=== PATIENT | female | born 1945 | race Hispanic/Latino ===

== ENCOUNTER 2017-04-05 20:49 | Inpatient (IN) | payer MEDICARE, BC ==
--- NOTE | 2017-04-05 22:32 | ED PDOC ---
Arrival/HPI <Jayesh Kelley - Last Filed: 04/06/17 01:36> <Willy Ohara - Last Filed: 04/06/17 06:40> - General Chief Complaint: Abdominal Pain - History of Present Illness Narrative History of Present Illness (Text): 04/05/17 22:26 Pt is a 71 yo F with PMH of hypertension presents to Emergency department with a several week history of generalized abdominal pain. Pt states that abdominal pain starts in epigastric region and radiates inferiorly. Pt states that pain is dull and has been worsening over this time period. Pt states that PO intake has decreased over the last few days, but tries to maintain fluids. Pt scheduled appt with Dr. Leal, but abdominal pain worsened enough to point that friend insisted she go to Emergency department. Pt is noncompliant with her hypertension medication and only takes it when its high. Pt denied chest pain, sob, nausea, vomiting, diarrhea, fever, chills, headache, or dizziness. (Jayesh Kelley) Past Medical History - Infectious Disease Hx of Infectious Diseases: None - Tetanus Immunization Tetanus Immunization: Unknown - Cardiac Hx Hypertension: Yes - Psychiatric Hx Depression: No Hx Emotional Abuse: No Hx Physical Abuse: No Hx Substance Use: No - Surgical History Hx Joint Replacement: Yes (bilateral hip) - Anesthesia Hx Anesthesia: No - Suicidal Assessment Feels Threatened In Home Enviroment: No <Jayesh Kelley - Last Filed: 04/06/17 01:36> Family/Social History Family/Social History: No Known Family HX Smoking Status: Never Smoked Hx Alcohol Use: No Hx Substance Use: No Hx Substance Use Treatment: No <Jayesh Kelley - Last Filed: 04/06/17 01:36> Allergies/Home Meds <Jayesh Kelley - Last Filed: 04/06/17 01:36> <Willy Ohara - Last Filed: 04/06/17 06:40> Allergies/Adverse Reactions: Allergies No Known Allergies Allergy (Verified 10/23/12 13:45) Home Medications: Home Meds Medication Instructions Recorded Confirmed No Known Home Med 10/23/12 10/23/12 Review of Systems - Review of Systems Constitutional: Normal Eyes: Normal ENT: Normal Respiratory: Normal Cardiovascular: Normal Gastrointestinal: Abdominal Pain (diffuse). absent: Stool Changes, Hematochezia , Hematemesis Genitourinary Female: Normal Musculoskeletal: Normal Skin: Normal Neurological: Normal Endocrine: Normal Hemo/Lymphatic: Normal Psychiatric: Normal <AllieJayesh - Last Filed: 04/06/17 01:36> Physical Exam Vital Signs Reviewed: Yes Temperature: Afebrile Blood Pressure: Hypertensive Pulse: Tachycardic Respiratory Rate: Normal Appearance: Positive for: Well-Appearing Pain Distress: Mild Mental Status: Positive for: Alert and Oriented X 3 - Systems Exam Head: Present: Atraumatic, Normocephalic Extroacular Muscles: Present: EOMI Mouth: Present: Moist Mucous Membranes Neck: Present: Normal Range of Motion Respiratory/Chest: Present: Clear to Auscultation. No: Accessory Muscle Use, Wheezes, Rales, Rhonchi Cardiovascular: Present: Normal S1, S2, Tachycardic. No: Murmurs, Rub, Gallop Abdomen: Present: Tenderness (diffuse, greatest in RLQ), Distention. No: Peritoneal Signs, Rebound, Guarding, McBurney's Point Tender, Rovsing's Sign Present Back: Present: Normal Inspection Upper Extremity: Present: Normal Inspection Lower Extremity: Present: Normal Inspection Neurological: Present: GCS=15 Skin: Present: Warm, Dry, Normal Color Psychiatric: Present: Alert, Oriented x 3 <AllieJayesh - Last Filed: 04/06/17 01:36> Vital Signs Temp Pulse Resp BP Pulse Ox 04/06/17 04:12 98.0 F 82 17 156/86 H 98 04/06/17 01:34 96 H 17 155/91 H 98 04/05/17 22:11 98.2 F 95 H 17 196/95 H 99 Medical Decision Making <Jayesh Kelley - Last Filed: 04/06/17 01:36> - Lab Interpretations I have reviewed the lab results: Yes - RAD Interpretation [employer] Supervisor: Radiologist <Willy Ohara - Last Filed: 04/06/17 06:40> ED Course and Treatment: 04/05/17 22:36 Assessment: Pt is a 71 yo F with PMH of hypertension presents to emergency department with abdominal pain. Plan: - CBC - CMP - Lipase - Cardiac enzymes - EKG - CT abd/pelvis with IV contrast 04/05/17 23:08 BP rechecked, 148/90. EKG showed NSR. 04/06/17 01:25 CT abdomen/pelvis with IV contrast 1. Peripancreatic fluid is in infiltration. There is heterogeneous hypodensity within the pancreatic tail measuring 1.9 x 1.0 cm. the possibility of pancreatic neoplasm versus a pseudocyst cannot be excluded. 2. Large amount of intraperitoneal abdominal and pelvic fluid. The extensive ascites could be due to liver disease. Correlation with clinical data is recommended. 3. Contracted gallbladder with gallbladder wall thickening pericholecystic fluid and possible gallstones. Correlation with internal medicine evaluation and further workup or followup as recommended by patient's clinical data. 04/06/17 01:[address] findings and labs with patient. Explained to patient the need to be admitted and undergo further evaluation. (Jayesh Kelley) Impression: Pt seen and evaluated with medical social worker. Pt, whose past medical history includes hypertension, presented for generalzied abdominal pain. Aware and agree with HPI, clinical findings, plan, and management. Plan: -- CT Abdomen and Pelvis -- EKG -- Labs, cardiac enzymes, lipase -- Reassess and disposition 04/06/17 01:[address] Cline, who is aware and agrees with plan. Accepts pt in to his service. Pt will go to [facility] observation for abdominal pain and ascites. vice president quality notified. (Willy Ohara) - Lab Interpretations Lab Results: 04/05/17 23:10 04/05/17 23:10 Lab Results 04/05/17 23:10: Carcinoembryonic Ag 2.2 04/05/17 23:10: Sodium 139, Potassium 4.0, Chloride 103, Carbon Dioxide 27, Anion Gap 14, BUN 19, Creatinine 0.8, Est GFR ( Amer) > 60, Est GFR (Non- Af Amer) > 60, Random Glucose 129 H, Calcium 9.1, Magnesium 2.0, Total Bilirubin 0.5, AST 34, ALT 30, Alkaline Phosphatase 83, Lactate Dehydrogenase 352, Total Creatine Kinase < 20 L, Troponin I < 0.01, Total Protein 6.2, Albumin 3.4, Globulin 2.8, Albumin/Globulin Ratio 1.2, Lipase 118 04/05/17 23:10: WBC 9.3, RBC 4.01, Hgb 11.5 L, Hct 35.6 L, MCV 88.8, MCH 28.7, MCHC 32.3, RDW 12.7, Plt Count 178, MPV 10.4, Gran % 79.5 H, Lymph % (Auto) 11.3 L, [place] % (Auto) 8.6 H, Eos % (Auto) 0.5 L, Baso % (Auto) 0.1, Gran # 7.41 H, Lymph # (Auto) 1.1 L, [place] # (Auto) 0.8 H, Eos # (Auto) 0.1, Baso # (Auto) 0.01 - RAD Interpretation Radiology Orders: 04/05/17 22:22 ABDOMEN & PELVIS [ABD & PELVIS IV CONTRAST ONLY] [CT] Stat - Medication Orders Current Medication Orders: Acetaminophen (Tylenol 325mg Tab) 650 mg PO Q4H PRN PRN Reason: Pain, Mild (1-3) Heparin Sodium (Porcine) (Heparin) 5,000 units SC Q12 SADE PRN Reason: Protocol Hydralazine HCl (Apresoline) 10 mg IVP Q6 PRN PRN Reason: SBP >160 Sodium Chloride (Sodium Chloride 0.9%) 1,000 mls @ 100 mls/hr IV .Q10H [facility] Last Admin: 04/06/17 06:29 Dose: 100 mls/hr eMAR Start Stop Document 04/06/17 06:29 SG (Rec: 04/06/17 06:29 SG [id number]) Intravenous Solution Start Date 04/06/17 Start Time 06:29 Ondansetron HCl (Zofran Inj) 4 mg IVP Q4H PRN PRN Reason: Nausea/Vomiting Pantoprazole Sodium (Protonix Ec Tab) 40 mg PO 0600 [facility] Last Admin: 04/06/17 06:28 Dose: 40 mg - PA / SPLUNK CONSULTANT / Resident Statement / has reviewed & agrees with the documentation as recorded. / has examined the patient and agrees with the treatment plan. <Willy Ohara - Last Filed: 04/06/17 06:40> Disposition/Present on Arrival - Present on Arrival Any Indicators Present on Arrival: No History of DVT/PE: No History of Uncontrolled Diabetes: No Urinary Catheter: No History of Decub. Ulcer: No History Surgical Site Infection Following: None - Disposition Have Diagnosis and Disposition been Completed?: Yes Disposition Time: 01:39 Patient Plan: Admission <Jayesh Kelley - Last Filed: 04/06/17 01:36> <Willy Ohara - Last Filed: 04/06/17 06:40> - Disposition Diagnosis: Abdominal pain Disposition: HOSPITALIZED Patient Problems: Current Active Problems Problem Status Onset Abdominal pain Acute Condition: FAIR
[2017-04-05 23:17] LABS: BASO # 0.01 K/mm3 (0.0-2.0); BASO % 0.1 % (0.0-3.0); EOS # 0.1 (0.0-0.7); EOS % 0.5 % (1.5-5.0); GRAN # 7.41 (1.4-6.5); GRAN % 79.5 % (50.0-68.0); HEMOGLOBIN 11.5 g/dL (12.0-16.0); LYMPH # 1.1 (1.2-3.4); LYMPH % 11.3 % (22.0-35.0); MEAN CELL VOLUME 88.8 fl (80.0-105.0); MEAN CORPUSCULAR HEMOGLOBIN 28.7 pg (25.0-35.0); MEAN CORPUSCULAR HGB CONC 32.3 g/dl (31.0-37.0); MEAN PLATELET VOLUME 10.4 fl (7.0-11.0); MONO # 0.8 (0.1-0.6); MONO % 8.6 % (1.0-6.0); RBC 4.01 10^6/uL (3.5-6.1); RED CELL DISTRIBUTION WIDTH 12.7 % (11.5-14.5); WHITE BLOOD COUNT 9.3 10^3/ul (4.5-11.0)
[2017-04-05 23:28] LABS: ALB/GLOB RATIO 1.2 (1.1-1.8); ALBUMIN 3.4 g/dL (3.0-4.8); ALT/SGPT 30 U/L (7-56); AST/SGOT 34 U/L (14-36); BLOOD UREA NITROGEN 19 mg/dL (7-21); CALCIUM 9.1 mg/dL (8.4-10.5); GFR AFRICAN-AMERICAN > 60; GFR NON-AFRICAN AMERICAN > 60; LIPASE 118 U/L (23-300)
[2017-04-05 23:39] LABS: TROPONIN I < 0.01 ng/mL
[2017-04-05] MEDS ORDERED: Iohexol 350 MG/100 ML VIAL ONE (23:40)
--- NOTE | 2017-04-06 01:10 | CT ---
EXAM: CT Abdomen and Pelvis With Intravenous Contrast CLINICAL HISTORY: 71 years old, female; Pain; Abdominal pain; Generalized TECHNIQUE: Axial computed tomography images of the abdomen and pelvis with intravenous contrast. All CT scans at this facility use one or more dose reduction techniques, viz.: automated exposure control; ma/kV adjustment per patient size (including targeted exams where dose is matched to indication; i.e. head); or iterative reconstruction technique. 598 images are submitted. Coronal and sagittal reformatted images were created and reviewed. CONTRAST: 96 mL of OMNI 350 administered intravenously. COMPARISON: No relevant prior studies available. FINDINGS: Lower thorax: Small hiatal hernia. There is bibasilar atelectasis. ABDOMEN: Liver: There is a 3 mm focal liver hypodensity that cannot be further characterized on the current examination. Possible nodular liver. Correlation with clinical data is recommended to evaluate for hepatocellular disease. Gallbladder and bile ducts: Contracted gallbladder with gallbladder wall thickening pericholecystic fluid and possible gallstones. Pancreas: Peripancreatic fluid is in infiltration. There is heterogeneous hypodensity within the pancreatic tail measuring 1.9 x 1.0 cm. the possibility of pancreatic neoplasm cannot be excluded. No ductal dilation. Spleen: The spleen measures 12 cm. Adrenals: Unremarkable. No mass. Kidneys and ureters: There is right-sided extrarenal pelvis with moderate distention. The right ureter is difficult to follow to the level of UVJ. No hydronephrosis. Stomach and bowel: Nonspecific gastric thickening with perigastric and periduodenal fluid. Diverticulosis. Nonspecific colonic thickening likely due to under distention. There are nonspecific fluid filled small bowel loops. These findings can represent ileus versus enteritis versus slow transit versus peristalsis. Appendix: The appendix is difficult to visualize. The right colon is surrounded by fluid. PELVIS: Bladder: Limited evaluation of bladder due to artifact. Reproductive: Heterogeneous uterus with calcifications. Suboptimally evaluated due to artifact. Uterine fibroids are not excluded. ABDOMEN and PELVIS: Intraperitoneal space: Large amount of intraperitoneal abdominal and pelvic fluid. No free air. Bones/joints: Bilateral hip prosthesis. The left femoral component is stabilized by a circumferential wire. The femoral components are incompletely seen. There is extensive artifact from hip prosthesis compromising the pelvic organs details. Multilevel vacuum degenerative disc disease. There is anterolisthesis of L4 over L5. No acute fracture. No dislocation. Soft tissues: Unremarkable. Vasculature: The aorta demonstrates calcified plaque and is mildly ectatic but normal in caliber. Lymph nodes: Subcentimeter mesenteric lymph nodes. IMPRESSION: 1. Peripancreatic fluid is in infiltration. There is heterogeneous hypodensity within the pancreatic tail measuring 1.9 x 1.0 cm. the possibility of pancreatic neoplasm versus a pseudocyst cannot be excluded. 2. Large amount of intraperitoneal abdominal and pelvic fluid. The extensive ascites could be due to liver disease. Correlation with clinical data is recommended. 3. Contracted gallbladder with gallbladder wall thickening pericholecystic fluid and possible gallstones. Correlation with internal medicine evaluation and further workup or followup as recommended by patient's clinical data.
--- NOTE | 2017-04-06 02:19 | CP.PCM.HP ---
History of Present Illness - History of Present Illness History of Present Illness: 71 year old female with past medical history of hypertension presents to the hospital for 4 month history of abdominal pain. Patient states pain started gradually and has not been associated with any particular inciting factors. Pain is described as mild and intermittent, with no radiation. Patient also reports that she has had early satiety and subjectively lost weight over this time period. Patient only came to the hospital at the advice of her friend. Patient had an appointment with Dr. Leal next week for her abdominal pain. She has not seen her PMD in over 5 years. Denies chest pain, shortness of breath , nausea, vomiting, diarrhea, fever, chills, constipation. Past medical history: hypertension Surgical history: B/l hip replacement Family history: Noncontributory Social history: Denies alcohol, tobacco, or illicit drug use Medications: Unknown hypertension med [email or web address] Allergies: NKDA Present on Admission - Present on Admission Any Indicators Present on Admission: No Review of Systems - Review of Systems Review of Systems: 12 point ROS as per HPI, otherwise negative Past Patient History - Infectious Disease Hx of Infectious Diseases: None - Tetanus Immunizations Tetanus Immunization: Unknown - Past Social History Smoking Status: Never Smoked - CARDIAC Hx Hypertension: Yes - PSYCHIATRIC Hx Depression: No Hx Emotional Abuse: No Hx Physical Abuse: No Hx Substance Use: No - SURGICAL HISTORY Hx Joint Replacement: Yes (bilateral hip) - ANESTHESIA Hx Anesthesia: No Meds Allergies/Adverse Reactions: Allergies Allergy/AdvReac Type Severity Reaction Status Date / Time No Known Allergies Allergy Verified 10/23/12 13:45 Physical Exam - Constitutional Appears: Non-toxic, No Acute Distress - Head Exam Head Exam: ATRAUMATIC, NORMAL INSPECTION, NORMOCEPHALIC - Eye Exam Eye Exam: EOMI, Normal appearance - ENT Exam ENT Exam: Mucous Membranes Moist, Normal Exam - Neck Exam Neck exam: Positive for: Normal Inspection. Negative for: Lymphadenopathy - Respiratory Exam Respiratory Exam: Clear to Auscultation Bilateral, NORMAL BREATHING PATTERN. absent: Rales, Rhonchi, Wheezes - Cardiovascular Exam Cardiovascular Exam: RRR, +S1, +S2 - GI/Abdominal Exam GI & Abdominal Exam: Normal Bowel Sounds, Soft, Tenderness (Mild epigastric). absent: Distended, Guarding, Rebound - Extremities Exam Extremities exam: Positive for: normal inspection. Negative for: calf tenderness, pedal edema - Neurological Exam Neurological exam: Alert, CN II-XII Intact, Oriented x3 - Psychiatric Exam Psychiatric exam: Normal Affect, Normal Mood - Skin Skin Exam: Intact, Normal Color, Warm Results - Vital Signs Recent Vital Signs: Last Vital Signs Temp 98.2 F 04/05/17 22:11 Pulse 96 H 04/06/17 01:34 Resp 17 04/06/17 01:34 BP 155/91 H 04/06/17 01:34 Pulse Ox 98 04/06/17 01:34 - Labs Result Diagrams: 04/05/17 23:10 04/05/17 23:10 Labs: Laboratory Results - last 24 hr 04/05/17 04/05/17 23:10 23:10 WBC 9.3 RBC 4.01 Hgb 11.5 L Hct 35.6 L MCV 88.8 MCH 28.7 MCHC 32.3 RDW 12.7 Plt Count 178 MPV 10.4 Gran % 79.5 H Lymph % (Auto) 11.3 L [place] % (Auto) 8.6 H Eos % (Auto) 0.5 L Baso % (Auto) 0.1 Gran # 7.41 H Lymph # (Auto) 1.1 L [place] # (Auto) 0.8 H Eos # (Auto) 0.1 Baso # (Auto) 0.01 Sodium 139 Potassium 4.0 Chloride 103 Carbon Dioxide 27 Anion Gap 14 BUN 19 Creatinine 0.8 Est GFR ( Amer) > 60 Est GFR (Non-Af Amer) > 60 Random Glucose 129 H Calcium 9.1 Magnesium 2.0 Total Bilirubin 0.5 AST 34 ALT 30 Alkaline Phosphatase 83 Lactate Dehydrogenase 352 Total Creatine Kinase < 20 L Troponin I < 0.01 Total Protein 6.2 Albumin 3.4 Globulin 2.8 Albumin/Globulin Ratio 1.2 Lipase 118 Assessment & Plan - Assessment and Plan (Free Text) Plan: 71 year old female with past medical history of hypertension presents to the hospital for abdominal pain. Patient had abdomen/pelvis CT which demonstrated pancreatic neoplasm vs pseudocyst with extensive abdominal ascites. Patient will be evaluated by GI. We will obtain serum cancer markers. Will continue to monitor closely. 1. Abdominal pain HIDA ordered Abdomen US ordered Liquid diet Tylenol for abdominal pain CA 125, CA 9, CEA ordered GI Consulted, Dr. Leal 2. Hypertension Hydralazine prn ordered Will contact pharmacy to confirm meds 3. Prophylaxis Protonix Heparin Fred, PGY-2
[2017-04-06] MEDS: Pantoprazole 40 mg EC Tab PO SCH (06:28)
[2017-04-06] MEDS: Sodium Chloride 0.9% 1,000 ML IV SCH ×2 (06:29→13:53)
[2017-04-06 07:48] LABS: HEMOGLOBIN 11.4 g/dL (12.0-16.0); MEAN CELL VOLUME 88.5 fl (80.0-105.0); MEAN CORPUSCULAR HEMOGLOBIN 28.5 pg (25.0-35.0); MEAN CORPUSCULAR HGB CONC 32.2 g/dl (31.0-37.0); MEAN PLATELET VOLUME 10.7 fl (7.0-11.0); RED CELL DISTRIBUTION WIDTH 12.7 % (11.5-14.5)
[2017-04-06 08:27] LABS: IRON 30 ug/dL (45-180)
[2017-04-06 08:37] LABS: % IRON SATURATION 11 % (20-55); TOTAL IRON BINDING CAPACITY 266 ug/dL (265-497)
--- NOTE | 2017-04-06 08:38 | US ---
EXAM: US Abdomen Complete CLINICAL HISTORY: 71 years old, female; Pain; Abdominal pain; Generalized TECHNIQUE: Real-time ultrasound of the abdomen (complete) with image documentation. COMPARISON: CT - ABD PELVIS IV CONTRAST ONLY 2017-04-06 00:04 FINDINGS: Artifacts: Limited due to bowel gas shadowing. Limited due to shadowing from the ribs. Liver: The liver measures 15.4 cm. Limited evaluation due to shadowing. Heterogeneous appearance to the liver suspicious for hepatocellular disease. There is hepatic pedal flow in the portal vein. Gallbladder: Contracted gallbladder with 6 mm gallbladder wall thickening which is suboptimally evaluated due to its contracted state. No gallstones. Common bile duct: Normal common bile duct measuring 4 mm. No stones. No dilation. Pancreas: The pancreas is not well-seen. The pancreatic duct measures 3 mm. Kidneys: The right kidney measures 10.9 x 3.9 x 5.3 cm. The left kidney measures 11.0 x 5.2 x 5.4 cm. No stones. No hydronephrosis. Spleen: The spleen measures 10.7 x 5.1 x 5.1 cm. Aorta: Limited evaluation of the aorta due to shadowing. Inferior vena cava: IVC is seen. Free fluid: Large amount of ascites. IMPRESSION: 1. Contracted gallbladder with 6 mm gallbladder wall thickening which is suboptimally evaluated due to its contracted state. 2. Large amount of ascites. 3. Heterogeneous liver suspicious for hepatocellular disease.
[2017-04-06 08:40] LABS: ALB/GLOB RATIO 1.2 (1.1-1.8); ALBUMIN 3.5 g/dL (3.0-4.8); ALT/SGPT 30 U/L (7-56); AST/SGOT 29 U/L (14-36); BLOOD UREA NITROGEN 15 mg/dL (7-21); CALCIUM 9.1 mg/dL (8.4-10.5); GFR AFRICAN-AMERICAN > 60; GFR NON-AFRICAN AMERICAN > 60
[2017-04-06 08:49] LABS: URIC ACID 4.1 mg/dL (2.5-6.2)
[2017-04-06] MEDS: POLYETHYLENE GLYCOL 3350 17 GM/Dose PACKET PO SCH ×2 (09:15→17:30)
[2017-04-06 09:30] LABS: INR 1.13 (0.93-1.08); PARTIAL THROMBOPLASTIN TIME 30.8 Seconds (25.1-36.5)
--- NOTE | 2017-04-06 09:50 | RAD ---
HISTORY: HTN COMPARISON: No prior. TECHNIQUE: Chest PA and lateral FINDINGS: LUNGS: No active pulmonary disease. PLEURA: No significant pleural effusion identified. No pneumothorax apparent. CARDIOVASCULAR: Normal. OSSEOUS STRUCTURES: Degenerative changes in the left shoulder VISUALIZED UPPER ABDOMEN: Normal. OTHER FINDINGS: None. IMPRESSION: No active disease.
--- NOTE | 2017-04-06 10:14 | CARD ---
APPROVED REPORT EKG Measurement Heart [id number] <Conclusion> Normal sinus rhythm LVH by voltage Wandering baseline
[2017-04-06 12:24] LABS: FOLATE 19.6 ng/mL
[2017-04-06 19:00] LABS: HEPATITIS B SURFACE AG Negative (NEGATIVE)
[2017-04-06 19:06] LABS: HEPATITIS A IGM NEGATIVE (NEGATIVE); HEPATITIS B CORE AB NEGATIVE (NEGATIVE)
[2017-04-06 19:17] LABS: HEPATITIS C ANTIBODY NEGATIVE (NEGATIVE)
--- NOTE | 2017-04-06 21:27 | CARD ---
APPROVED REPORT EKG Measurement Heart [id number] <Conclusion> Normal sinus rhythm Normal ECG
--- NOTE | 2017-04-07 02:11 | HP ---
ADDENDUM The patient was seen and examined in room 366, bed 1. The patient's vital signs, diagnostic data, all reports and resident's history and physical examination from 04/06/2017 reviewed and the patient examined. ADMISSION IMPRESSION AND PLAN: 1. Abdominal pain, etiology undetermined. 2. Hypertension. 3. Transient tachycardia. 4. Normocytic anemia with granulocytosis. 5. Hyperglycemia. 6. Possible iron-deficiency anemia. 7. Elevated CA19-9 and CA-125 level. 8. 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 9. Heterogenous hepatic appearance suspicious for hepatocellular disease. 10. Ascites. 11. Contracted gallbladder with 6 mm gallbladder wall thickening. 12. Hiatal hernia. 13. Bibasilar atelectasis. 14. Nodular liver. 15. Peripancreatic fluid infiltration. 16. Pancreatic tail heterogenous hypodensity, possible pancreatic neoplasm. 17. Moderate right-sided extrarenal pelvic distention. 18. Diverticulosis. 19. Questionable enteritis versus ileus versus slow transit versus peristalsis. 20. Calcified heterogenous uterus. 21. Large intraperitoneal abdominopelvic ascites. 22. Bilateral hip prosthesis. 23. Degenerative joint disease of the lumbar spine. 24. Subcentimeter mesenteric lymphadenopathy. 25. 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 26. History of hypertension. 27. Abdominal pain. 28. Bilateral hip replacement. 29. Iron deficiency. 30. Hyperglycemia. 31. Constipation. 32. Normocytic iron-deficiency anemia. 33. Elevated CA19-9 and elevated CA-125 antigen. 34. Granulocytosis. Plan at this time, the patient is admitted to [facility]. The patient has been ordered serial labs. Hemoglobin A1c, lipid panel, LFTs ordered. Erythropoietin and CBC ordered. GI consultation ordered. The patient is on hydralazine 10 mg IV q. 6 p.r.n., Colace 100 three times a day, heparin 5000 subcu q. 8, Venofer 200 mg IV daily total five, Lopressor 25 twice a day, MiraLax 17 g twice a day, Protonix 40 mg daily, IV fluid 0.9 normal saline at 100 mL an hour, Tylenol 650 q. 6 p.r.n., Zofran 4 mg IV q. 4 p.r.n. The patient has been ordered MRCP of the abdomen with and without contrast. Biliary HIDA scan ordered. EKG ordered. In addition, transvaginal pelvic ultrasound ordered for evaluation of CA-125. At present, the patient's further management will be dependent upon the patient's clinical condition, hemodynamic status and as per the patient's response to therapeutic intervention, as per the patient's diagnostic test results and as per recommendation by all the physician involved in the care of the patient. The patient's condition and need for hospitalization, need for further diagnostic therapeutic intervention discussed and explained to the patient at length and all questions concerned answered. Please refer to the detailed history and physical examination by the associate medical director for 04/06/2017 from this patient. Dictated and electronically signed, not read. Sky Cline MD
[2017-04-07] MEDS: Pantoprazole 40 mg EC Tab PO SCH (05:46)
[2017-04-07] MEDS ORDERED: Pantoprazole 40 mg EC Tab PO SCH (06:00)
[2017-04-07 06:50] LABS: BASO # 0.01 K/mm3 (0.0-2.0); BASO % 0.2 % (0.0-3.0); EOS # 0.1 (0.0-0.7); EOS % 1.1 % (1.5-5.0); GRAN # 4.82 (1.4-6.5); GRAN % 73.9 % (50.0-68.0); HEMOGLOBIN 10.7 g/dL (12.0-16.0); LYMPH # 1.2 (1.2-3.4); LYMPH % 18.1 % (22.0-35.0); MEAN CELL VOLUME 89.2 fl (80.0-105.0); MEAN CORPUSCULAR HEMOGLOBIN 28.2 pg (25.0-35.0); MEAN CORPUSCULAR HGB CONC 31.6 g/dl (31.0-37.0); MEAN PLATELET VOLUME 10.5 fl (7.0-11.0); MONO # 0.4 (0.1-0.6); MONO % 6.7 % (1.0-6.0); RBC 3.8 10^6/uL (3.5-6.1); RED CELL DISTRIBUTION WIDTH 12.9 % (11.5-14.5); WHITE BLOOD COUNT 6.5 10^3/ul (4.5-11.0)
[2017-04-07 07:09] LABS: ALB/GLOB RATIO 1.2 (1.1-1.8); ALT/SGPT 24 U/L (7-56); AST/SGOT 31 U/L (14-36); BILIRUBIN,DIRECT 0.3 mg/dL (0.0-0.4); BLOOD UREA NITROGEN 10 mg/dL (7-21); GFR AFRICAN-AMERICAN > 60; GFR NON-AFRICAN AMERICAN > 60; HDL CHOLESTEROL 38 mg/dL (29-60); MAGNESIUM 1.9 mg/dL (1.7-2.2)
[2017-04-07 07:15] LABS: LDL CHOLESTEROL 88 mg/dL (0-129)
--- NOTE | 2017-04-07 08:30 | CON ---
DATE: REASON FOR CONSULTATION: Abdominal pain, abnormal CAT scan. HISTORY OF PRESENT ILLNESS: This is a 71-year-old patient with a past medical history of hypertension, presented as initially noticed to have abdominal pain, mainly lower abdominal discomfort about 4 months ago. It gradually was increasing in intensity. Initially it was a dull ache. Patient noticed when she was in [place], taking care of her close friend who is requiring liver transplant. Patient shifted to [place] and made appointment to see me in the office next week, found to have worsening of the symptoms, presented to the emergency room. Patient also noticed by the last 2 weeks of change in bowel habits, mostly constipating type. No fever. No vomiting. PAST MEDICAL HISTORY: History of weight loss. Other past medical history includes hypertension. PAST SURGICAL HISTORY: Includes bilateral hip replacement. FAMILY HISTORY: Noncontributory. SOCIAL HISTORY: Denies smoking or alcohol. ALLERGIES: NO KNOWN DRUG ALLERGIES. REVIEW OF SYSTEMS: Positive as above. Other systems reviewed and negative. PHYSICAL EXAMINATION: GENERAL: Patient is lying on the bed. Not in acute distress. VITAL SIGNS: Temperature 98.6, blood pressure 162/87, pulse 75, respirations 20, O2 saturations 98. HEENT: Atraumatic, anicteric. NECK: Supple. HEART: S1, S2 heard. LUNGS: Bilateral air entry present. ABDOMEN: Soft. EXTREMITIES: No cyanosis, no clubbing. NEUROLOGIC: Alert, oriented. LABORATORY DATA: LFTs are essentially unremarkable. Serum iron 30, transferrin saturation is 11%, slightly on the low side. CBC: Hemoglobin 11.4, hematocrit 35.4, WBC is 8.0, platelet count 184. IMPRESSION: This 71-year-old patient presented to the emergency room because of the worsening of the abdominal pain, which started about 4 months ago. Patient has history of weight loss. Patient had a CT scan which was reviewed, has ascites and peripancreatic fluid noticed. There was also heterogenous hypodensity within the peripancreatic fluid. Within the pancreatic tail, there was about 1.9 x 1 cm hypodensity lesion noticed. Ascites present. Contracted gallbladder wall. The ultrasound showed no gallstones. Patient has weight loss, rule out malignancy, rule out pancreatic lesion, rule out gynecological malignancy to be considered. Patient had tumor marker sent, which shows significantly elevated CA19-9 of 53. CA-125 is about 114. RECOMMENDATIONS: 1. We will request MRI of the pancreas with MRCP to further evaluate the pancreatic lesion. 2. We will change the diet to clear liquid diet. 3. We will consider EGD with EUS examination. malignancy, would consider EUS. Patient will be scheduled for an EUS with endoscopic ultrasound tomorrow after reviewing of the MRCP findings. 4. Would request also transvaginal sonogram. Thank you very much for allowing us to participate in the care of the patient. Karson Leal MD
[2017-04-07] MEDS ORDERED: Gadodiamide 287 MG/ML VIAL (15ML) IV ONE (08:53)
[2017-04-07] MEDS: POLYETHYLENE GLYCOL 3350 17 GM/Dose PACKET PO SCH ×2 (10:20→18:00)
--- NOTE | 2017-04-07 10:37 | MRI ---
PROCEDURE: MRI Abdomen with and without contrast HISTORY: Rule out pancreatic lesion COMPARISON: CT 04/06/2017. TECHNIQUE: Multisequence, multiplanar MR images of the abdomen with and without gadolinium contrast enhancement. 15 cc of Omniscan FINDINGS: LIVER: The liver has a hypo intense appearance on T2 weighted imaging consistent with iron deposition in hemochromatosis. GALLBLADDER: Contracted. The common duct is unremarkable SPLEEN: Unremarkable. PANCREAS: There is enlargement of the tail of the pancreas with dilated ducts seen at the tip of the tail. The findings are best seen on axial image 18 series 4. On the postcontrast imaging there is an area of non enhancement measuring 1.5 cm in diameter. This can be seen on image 40 of series 1403 and 1404. The findings are consistent with a pancreatic neoplasm with ductal obstruction ADRENALS: Unremarkable. KIDNEYS: Unremarkable. AORTA: No aneurysm. ASCITES: None. PERITONEUM: There is severe ascites. This may be secondary to liver disease. LYMPH NODES: Unremarkable. OTHER FINDINGS: None. IMPRESSION: Enlargement of the tail of the pancreas with a focal 1.5 cm nonenhancing lesion producing ductal obstruction. Findings are consistent with a pancreatic neoplasm. See comments. Severe ascites. 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
--- NOTE | 2017-04-07 13:53 | US ---
HISTORY: ELEVATED CA-125 COMPARISON: Enhanced Abdomen an pelvis CT examination 04/06/2017 TECHNIQUE: Transabdominal and transvaginal pelvic ultrasound were performed in evaluation of the pelvic contents. FINDINGS: UTERUS: Measures 7.9 x 3.7 x 5.1 cm. The uterus is anteverted with a moderate posterior uterine myoma partially calcified, measuring 3.9 x 3.2 x 3.9 cm. There is a smaller, mixed echogenicity mass identified at the anterior uterine fundus measuring 1.7 x 1.4 x 1.7 cm. An additional smaller anterior fundal myoma is identified toward the left measuring 1.3 x 1.6 x 1.5 cm. The remainder the uterus appears unremarkable exclusive of the endometrial cavity as described below. ENDOMETRIUM: Measures 5.5 mm mm in diameter. Fluid and dependent debris distends the endometrial cavity mildly, with no suspicious color Doppler blood flow pattern appreciable. CERVIX: No cervical abnormality identified. RIGHT OVARY: Not visualized; no definitive suspicious right adnexal lesion identified. LEFT OVARY: Not visualized; no definitive suspicious left adnexal lesion identified. FREE FLUID: No significant free fluid noted. OTHER FINDINGS: None. IMPRESSION: Neither ovary is identified despite transvaginal and trans abdominal technique. No definite suspicious adnexal finding is appreciable grossly. At least 3 uterine myomata are identified with the largest identified in the posterior fundus 3.9 cm greatest dimension. Further, fluid and debris is appreciated within the endometrial cavity in a nonspecific pattern. Underlying endometrial neoplasm is not excluded here.
[2017-04-07] MEDS: Sodium Chloride 0.9% 1,000 ML IV SCH (15:01)
--- NOTE | 2017-04-07 16:02 | NM ---
PROCEDURE: Nuclear Medicine Hepatobiliary Scan HISTORY: Abdominal pain COMPARISON: None available. TECHNIQUE: 6.2 mCi of technetium 99m Mebrofenin was administered intravenously. Planar images of the abdomen were obtained at 5 min intervals to 60 mins. Delayed images were also obtained. FINDINGS: LIVER: Timely and homogenous uptake. COMMON BILE DUCT: identified at 15 mins. GALLBLADDER: Not visualized even on delayed 4 hour imaging SMALL BOWEL: Identified at 30 mins. IMPRESSION: Nonvisualization of the gallbladder consistent with acute cholecystitis
--- NOTE | 2017-04-07 16:57 | CP.PCM.PN ---
<Dariana Chavira - Last Filed: 04/07/17 16:48> Subjective - Date & Time of Evaluation Date of Evaluation: 04/07/17 Time of Evaluation: 11:00 - Subjective Subjective: S&E at bedside, chart reviewed, [facility], tolerating full liquid diet. No c/o N/V or abdominal pain. No BM, SOB or CP . No acute overnight events reported. Objective - Vital Signs/Intake and Output Vital Signs (last 24 hours): Temp Pulse Resp BP Pulse Ox 98.7 F 63 19 159/82 H 97 04/07/17 08:17 04/07/17 10:19 04/07/17 08:17 04/07/17 10:19 04/07/17 08:17 Intake and Output: 04/07/17 04/07/17 06:59 18:59 Intake Total 2120 240 Balance 2120 240 - Medications Medications: Current Medications Acetaminophen (Tylenol 325mg Tab) 650 mg PO Q6H PRN PRN Reason: TEMP>=99.5F Acetaminophen (Tylenol 650 Mg Supp) 650 mg RC Q6H PRN PRN Reason: TEMP>=99.5F Docusate Sodium (Colace) 100 mg PO TID [facility] Last Admin: 04/07/17 15:00 Dose: Not Given Heparin Sodium (Porcine) (Heparin) 5,000 units SC Q8 [facility] PRN Reason: Protocol Last Admin: 04/07/17 15:00 Dose: Not Given Hydralazine HCl (Apresoline) 10 mg IVP Q6 PRN PRN Reason: SBP >160 Last Admin: 04/06/17 09:15 Dose: 10 mg Iron Sucrose 200 mg/ Sodium (Chloride) 110 mls @ 110 mls/hr IVPB DAILY [facility] Stop: 04/10/17 10:59 Last Admin: 04/07/17 10:47 Dose: 110 mls/hr Metoprolol Tartrate (Lopressor) 25 mg PO BRKDIN [facility] Last Admin: 04/07/17 10:19 Dose: 25 mg Ondansetron HCl (Zofran Inj) 4 mg IVP Q4H PRN PRN Reason: Nausea/Vomiting Pantoprazole Sodium (Protonix Ec Tab) 40 mg PO 0600 [facility] Last Admin: 04/07/17 05:46 Dose: 40 mg Polyethylene Glycol (Miralax) 17 gm PO BID [facility] Last Admin: 04/07/17 10:20 Dose: 17 gm - Labs Labs: 04/07/17 06:15 04/07/17 06:15 PT 13.0 SECONDS (9.4-12.5) H 04/06/17 08:40 INR 1.13 (0.93-1.08) H 04/06/17 08:40 APTT 30.8 Seconds (25.1-36.5) 04/06/17 08:40 - Constitutional Appears: No Acute Distress - Head Exam Head Exam: NORMOCEPHALIC - Eye Exam Eye Exam: Normal appearance. absent: Scleral icterus - ENT Exam ENT Exam: Mucous Membranes Moist - Neck Exam Neck Exam: Normal Inspection - Respiratory Exam Respiratory Exam: NORMAL BREATHING PATTERN. absent: Respiratory Distress - Cardiovascular Exam Cardiovascular Exam: +S1, +S2 - GI/Abdominal Exam GI & Abdominal Exam: Soft, Normal Bowel Sounds. absent: Guarding, Tenderness, Organomegaly, Rebound - Extremities Exam Extremities Exam: absent: Calf Tenderness, Pedal Edema - Neurological Exam Neurological Exam: Alert, Awake, Oriented x3 - Skin Skin Exam: Dry, Warm Assessment and Plan - Assessment and Plan (Free Text) Assessment: ASSESSMENT: Weight loss Abnormal Ct scan, pancreatic tail lesion, r/o malignancy Elevated tumor markers Ascites PLAN: clear liquid diet continue PPI DVT prophylaxsis IV iron On colace and miralax, hold for diarrhea NPO 12 midnight for EGD/EUS on 04/08/17, cancelled today, pt had full liquids FU pelvic and transvaginal US spoke to patient at bedside and nursing staff. Seen and discussed w/ Dr. Leal. <Karson Leal V - Last Filed: 04/08/17 07:11> Objective - Vital Signs/Intake and Output Vital Signs (last 24 hours): Temp Pulse Resp BP Pulse Ox 98 F 63 19 152/82 H 99 04/07/17 16:00 04/07/17 16:57 04/07/17 16:00 04/07/17 16:57 04/07/17 16:00 Intake and Output: 04/08/17 04/08/17 06:59 18:59 Intake Total 720 Balance 720 - Medications Medications: Current Medications Acetaminophen (Tylenol 325mg Tab) 650 mg PO Q6H PRN PRN Reason: TEMP>=99.5F Acetaminophen (Tylenol 650 Mg Supp) 650 mg RC Q6H PRN PRN Reason: TEMP>=99.5F Docusate Sodium (Colace) 100 mg PO TID [facility] Last Admin: 04/07/17 18:00 Dose: Not Given Heparin Sodium (Porcine) (Heparin) 5,000 units SC Q8 [facility] PRN Reason: Protocol Last Admin: 04/08/17 05:04 Dose: Not Given Hydralazine HCl (Apresoline) 10 mg IVP Q6 PRN PRN Reason: SBP >160 Last Admin: 04/06/17 09:15 Dose: 10 mg Metronidazole (Flagyl) 500 mg in 100 mls @ 100 mls/hr IVPB Q8 [facility] PRN Reason: Protocol Last Admin: 04/08/17 05:12 Dose: 100 mls/hr Cefepime HCl (Maxipime 1gm) 1 gm in 100 mls @ 100 mls/hr IVPB Q12 [facility] PRN Reason: Protocol Last Admin: 04/07/17 22:32 Dose: 100 mls/hr Metoprolol Tartrate (Lopressor) 25 mg PO BRKDIN [facility] Last Admin: 04/07/17 16:57 Dose: 25 mg Ondansetron HCl (Zofran Inj) 4 mg IVP Q4H PRN PRN Reason: Nausea/Vomiting Pantoprazole Sodium (Protonix Ec Tab) 40 mg PO 0600 [facility] Last Admin: 04/08/17 05:05 Dose: Not Given Polyethylene Glycol (Miralax) 17 gm PO BID [facility] Last Admin: 04/07/17 18:00 Dose: Not Given - Labs Labs: 04/08/17 05:40 PT 13.0 SECONDS (9.4-12.5) H 04/06/17 08:40 INR 1.13 (0.93-1.08) H 04/06/17 08:40 APTT 30.8 Seconds (25.1-36.5) 04/06/17 08:40 Attending/Attestation - Attestation I have personally seen and examined this patient.: Yes I have fully participated in the care of the patient.: Yes I have reviewed all pertinent clinical information, including history, physical exam and plan: Yes Notes (Text): This is an addendum to GI progress report dictated by Dariana Chavira APN.The patient was seen and examined on the at 6 PM . patient's family was at bedside. This is a delayed dictation. Medical records, lab studies, imagings were reviewed. Last 24 hours events reviewed. Agreed with the above treatment plan as outlined in Dariana Chavira APN's notes the with the addition of the following EUS was procedure was rescheduled as patient had a full liquid diet and also awaiting for the results of MRCP. MRCP findings were reviewed subsequently On examination abdomen softly distended bowel sounds present Discussed with the patient. nothing by mouth after clear liquid breakfast for EUS FNA 04/08/17 07:07
[2017-04-07] MEDS: Cefepime 1gm in NS 100ml 1 GM/100 ML BAG IVPB SCH (22:32)
[2017-04-07] MEDS: metroNIDAZOLE IV 500 mg/100 ml 500 MG/100 ML BAG IVPB SCH (22:32)
--- NOTE | 2017-04-08 02:57 | PN ---
DATE: 04/07/2017 HISTORY: The patient is seen in room 366, bed 1. The patient is sitting up in the bed. The patient has been out of bed, with bathroom privileges. The patient's overnight nurse's notes were reviewed. PHYSICAL EXAMINATION: VITAL SIGNS: T-max 98.7, 98.2, pulse rate 63, 87, blood pressure is 159/82, 169/85, 159/82, 152/82, respirations 19, O2 sat 97-99%. HEAD: Normocephalic, atraumatic. HEENT: Shows pinkish pale conjunctivae. Anicteric sclerae. No oropharyngeal lesion. No neck rigidity. CHEST: Kyphosis. LUNGS: Shows no rales, crackles, or wheezing. CARDIOVASCULAR: S1, S2, regular rhythm. ABDOMEN: Soft. Mild epigastric right upper quadrant deep tenderness. No guarding. No rigidity. No rebound tenderness. GENITALIA: Female. RECTAL: Deferred. EXTREMITIES: Shows no pitting edema, no calf numbness, no Homans sign. NEUROLOGIC: The patient is alert, awake, oriented x3. Cranial nerves II-XII intact. Without any gross deficit. GAIT: Independent. VASCULAR: Palpable pulses. MUSCULOSKELETAL: Shows a body mass index of 20. DIAGNOSTICS: On April 07; WBC 6.5, hemoglobin/hematocrit 10.7 and 34, platelet 184. Granulocytes 74. Sodium 140, potassium 4.0, chloride 106, CO2 26, anion gap 12, BUN 10, creatinine 0.6, GFR greater than 60, glucose 103, hemoglobin A1c 6.1, calcium 9.0, phosphorus 3.7, magnesium 1.9. LFTs are normal. Total protein 5.6. Hepatitis A, B, C, and HIV are negative. IMPRESSION: 1. Abdominal pain. 2. Status post magnetic resonance cholangiopancreatography. 3. Weight loss. 4. Elevated CA19-9, and CA-125. 5. Severe ascites. 6. Questionable hemochromatosis with hepatic iron deposition. 7. Possible pancreatic neoplasm with pancreatic ductal obstruction and enlargement of the pancreatic tail with dilated pancreatic duct at the tip of the pancreatic tail with area of non-enhancement. 8. Hypertension. 9. Granulocytosis. 10. Normocytic anemia. 11. Prediabetes. 12. Posterior uterine myoma, partially calcified, with anteverted uterus. 13. Non-visualized . 14. 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 15. Nonvisualization of the gallbladder and questionable acute cholecystitis. 16. Questionable possible acute cholecystitis with contracted gallbladder with 6 mm gallbladder wall thickening. 1. Abdominal pain, etiology undetermined. 2. Hypertension. 3. Transient tachycardia. 4. Normocytic anemia with granulocytosis. 5. Hyperglycemia. 6. Possible iron-deficiency anemia. 7. Elevated CA19-9 and CA-125 level. 8. 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 9. Heterogenous hepatic appearance suspicious for hepatocellular disease. 10. Ascites. 11. Contracted gallbladder with 6 mm gallbladder wall thickening. 12. Hiatal hernia. 13. Bibasilar atelectasis. 14. Nodular liver. 15. Peripancreatic fluid infiltration. 16. Pancreatic tail heterogenous hypodensity, possible pancreatic neoplasm. 17. Moderate right-sided extrarenal pelvic distention. 18. Diverticulosis. 19. Questionable enteritis versus ileus versus slow transit versus peristalsis. 20. Calcified heterogenous uterus. 21. Large intraperitoneal abdominopelvic ascites. 22. Bilateral hip prosthesis. 23. Degenerative joint disease of the lumbar spine. 24. Subcentimeter mesenteric lymphadenopathy. 25. 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 26. History of hypertension. 27. Abdominal pain. 28. Bilateral hip replacement. 29. Iron deficiency. 30. Hyperglycemia. 31. Constipation. 32. Normocytic iron-deficiency anemia. 33. Elevated CA19-9 and elevated CA-125 antigen. 34. Granulocytosis. PLAN: At this time, the patient is ordered repeat labs, CMP, LFT, magnesium phosphorus, CBC, PT, PTT ordered. Current consultations: I have also requested surgical consultation for evaluation of abnormal HIDA scan. The patient is on GI consultation. The patient is scheduled for EGD in [place] in the morning. Current medications: Hydralazine 10 mg IV q.6h. p.r.n., Colace 100 mg three times a day, the patient was started empirically on Flagyl 500 mg IV q. 8, heparin 5000 subcu q. 8, Lopressor 25 mg twice a day, cefepime 1 g IV q. 12, MiraLax 17 g twice a day, Protonix 40 mg daily, Tylenol p.r.n., Zofran 4 mg IV q. 4 p.r.n. HAO stockings ordered. The patient was seen by physical therapist, not a candidate for physical therapy. The patient was updated about her condition, diagnosis, test results, recommendation. The patient's further management will be dependent upon the patient's clinical condition, hemodynamic status and as per the patient response to therapeutic intervention, as per the patient's diagnostic test results, and as per recommendation by all the physicians involved in the care of the patient. Dictated and electronically signed, not read. Sky Cline MD MTDD
[2017-04-08] MEDS: Pantoprazole 40 mg EC Tab PO SCH (05:05)
[2017-04-08] MEDS: metroNIDAZOLE IV 500 mg/100 ml 500 MG/100 ML BAG IVPB SCH ×3 (05:12→22:54)
[2017-04-08 06:53] LABS: BASO # 0.01 K/mm3 (0.0-2.0); BASO % 0.1 % (0.0-3.0); EOS # 0.1 (0.0-0.7); EOS % 0.9 % (1.5-5.0); GRAN # 9.12 (1.4-6.5); GRAN % 88.7 % (50.0-68.0); HEMOGLOBIN 11.6 g/dL (12.0-16.0); LYMPH # 0.6 (1.2-3.4); MEAN CELL VOLUME 88.8 fl (80.0-105.0); MEAN CORPUSCULAR HEMOGLOBIN 28.9 pg (25.0-35.0); MEAN CORPUSCULAR HGB CONC 32.5 g/dl (31.0-37.0); MEAN PLATELET VOLUME 10.7 fl (7.0-11.0); MONO # 0.4 (0.1-0.6); MONO % 4.3 % (1.0-6.0); RBC 4.02 10^6/uL (3.5-6.1); WHITE BLOOD COUNT 10.3 10^3/ul (4.5-11.0)
[2017-04-08 07:05] LABS: ALB/GLOB RATIO 1.2 (1.1-1.8); ALBUMIN 3.3 g/dL (3.0-4.8); ALT/SGPT 27 U/L (7-56); AST/SGOT 50 U/L (14-36); BILIRUBIN,DIRECT 0.4 mg/dL (0.0-0.4); BLOOD UREA NITROGEN 9 mg/dL (7-21); CALCIUM 9.3 mg/dL (8.4-10.5); GFR AFRICAN-AMERICAN > 60; GFR NON-AFRICAN AMERICAN > 60; MAGNESIUM 1.9 mg/dL (1.7-2.2)
[2017-04-08] MEDS ORDERED: Morphine 2 mg/ml ISec IVP PRN (07:19)
[2017-04-08 07:20] LABS: INR 1.06 (0.93-1.08); PROTHROMBIN TIME 12.2 SECONDS (9.4-12.5)
--- NOTE | 2017-04-08 10:16 | CP.PCM.CON ---
History of Present Illness - History of Present Illness History of Present Illness: Surgery Consult note. Dr. Hernandez 71yo F with PMHx of HTN here for evaluation of abdominal pain. Pain started about 4 months ago, located in the epigastric region, described as vague fullness. She states that the pain became much worse over the past week. Denies any N/V/D. She also states that she lost weight over the same duration of symptoms, unable to quantify amount of weight lost. Surgery consulted for possible cholecystitis. Patient currently states that she has pain located in the RUQ and epigastric area. Denies any fevers or chills. No N/V. Does report loose stools. No MYERS. No CP/SOB. No new complaints. Abd US with evidence of contracted Gallbladder, thickened wall, no stones. CT Abd/Pelvis with possible 1.9cm x 1cm mass vs pseudocyst in tail of pancreas. MRCP with evidence of large amount of ascites, hemochromatosis of liver, and pancreatic tail mass with dilated pancreatic ducts. HIDA with non-visualized gallbladder, r/o cholecystitis. PMD: none PMHx: HTN PSHx: Bilateral Hip replacement Family Hx: no reported hx of colon CA in family. Father - Prostate CA. Distant relatives with breast CA. Social Hx: Denies Tobacco use. Denies ETOH use. Denies illicit drugs. NKDA Review of Systems - Review of Systems All systems: reviewed and no additional remarkable complaints except - Constitutional Constitutional: Weight Loss. absent: Chills, Fever - Cardiovascular Cardiovascular: absent: Chest Pain, Dyspnea - Respiratory Respiratory: absent: Dyspnea - Gastrointestinal Gastrointestinal: Abdominal Pain, Early Satiety, Loose Stools. absent: Constipation, Diarrhea, Dysphagia, Melena, Nausea, Vomiting - Neurological Neurological: absent: Headaches Past Patient History - Infectious Disease Hx of Infectious Diseases: None - Tetanus Immunizations Tetanus Immunization: Unknown - Past Social History Smoking Status: Never Smoked - CARDIAC Hx Cardiac Disorders: Yes Hx Hypertension: Yes - PULMONARY Hx Respiratory Disorders: No - NEUROLOGICAL Hx Neurological Disorder: No - HEENT Hx HEENT Problems: No - RENAL Hx Chronic Kidney Disease: No - ENDOCRINE/METABOLIC Hx Endocrine Disorders: No - HEMATOLOGICAL/ONCOLOGICAL Hx Blood Disorders: No - INTEGUMENTARY Hx Dermatological Problems: No - MUSCULOSKELETAL/RHEUMATOLOGICAL Hx Musculoskeletal Disorders: No Hx Falls: No - GASTROINTESTINAL Hx Gastrointestinal Disorders: No - GENITOURINARY/GYNECOLOGICAL Hx Genitourinary Disorders: No - PSYCHIATRIC Hx Psychophysiologic Disorder: No Hx Substance Use: No - SURGICAL HISTORY Hx Surgeries: Yes (bilateral hip replacements) - ANESTHESIA Hx Anesthesia: No Meds Allergies/Adverse Reactions: Allergies Allergy/AdvReac Type Severity Reaction Status Date / Time No Known Allergies Allergy Verified 10/23/12 13:45 - Medications Medications: Current Medications Acetaminophen (Tylenol 325mg Tab) 650 mg PO Q6H PRN PRN Reason: TEMP>=99.5F Acetaminophen (Tylenol 650 Mg Supp) 650 mg RC Q6H PRN PRN Reason: TEMP>=99.5F Docusate Sodium (Colace) 100 mg PO TID [facility] Last Admin: 04/07/17 18:00 Dose: Not Given Heparin Sodium (Porcine) (Heparin) 5,000 units SC Q8 [facility] PRN Reason: Protocol Last Admin: 04/08/17 05:04 Dose: Not Given Hydralazine HCl (Apresoline) 10 mg IVP Q6 PRN PRN Reason: SBP >160 Last Admin: 04/06/17 09:15 Dose: 10 mg Metronidazole (Flagyl) 500 mg in 100 mls @ 100 mls/hr IVPB Q8 [facility] PRN Reason: Protocol Last Admin: 04/08/17 05:12 Dose: 100 mls/hr Cefepime HCl (Maxipime 1gm) 1 gm in 100 mls @ 100 mls/hr IVPB Q12 [facility] PRN Reason: Protocol Last Admin: 04/07/17 22:32 Dose: 100 mls/hr Metoprolol Tartrate (Lopressor) 25 mg PO BRKDIN [facility] Last Admin: 04/07/17 16:57 Dose: 25 mg Morphine Sulfate (Morphine) 2 mg IVP Q4H PRN PRN Reason: Pain, moderate (4-7) Ondansetron HCl (Zofran Inj) 4 mg IVP Q4H PRN PRN Reason: Nausea/Vomiting Pantoprazole Sodium (Protonix Ec Tab) 40 mg PO 0600 [facility] Last Admin: 04/08/17 05:05 Dose: Not Given Polyethylene Glycol (Miralax) 17 gm PO BID [facility] Last Admin: 04/07/17 18:00 Dose: Not Given Physical Exam - Constitutional Appears: Non-toxic, No Acute Distress - Head Exam Head Exam: ATRAUMATIC, NORMAL INSPECTION, NORMOCEPHALIC - Eye Exam Eye Exam: EOMI, Normal appearance. absent: Scleral icterus - ENT Exam ENT Exam: Mucous Membranes Moist - Respiratory Exam Respiratory Exam: NORMAL BREATHING PATTERN. absent: Accessory Muscle Use - Cardiovascular Exam Cardiovascular Exam: absent: JVD - GI/Abdominal Exam GI & Abdominal Exam: Normal Bowel Sounds, Soft. absent: Distended, Firm, Guarding, Rebound, Rigid Additional comments: Mild tenderness to palpation RUQ. No rebound. NO guarding. No Valles's sign - Extremities Exam Extremities exam: Positive for: normal inspection. Negative for: calf tenderness - Back Exam Back exam: NORMAL INSPECTION. absent: CVA tenderness (L), CVA tenderness (R) - Neurological Exam Neurological exam: Alert, Normal Gait, Oriented x3 - Psychiatric Exam Psychiatric exam: Normal Affect - Skin Skin Exam: Dry, Intact, Normal Color, Warm Results - Vital Signs Recent Vital Signs: Last Vital Signs Temp 97.7 F 04/08/17 08:43 Pulse 79 04/08/17 08:43 Resp 18 04/08/17 08:43 BP 153/86 H 04/08/17 08:43 Pulse Ox 97 04/08/17 08:43 - Labs Result Diagrams: 04/08/17 05:40 04/08/17 05:40 Labs: Laboratory Results - last 24 hr 04/08/17 04/08/17 04/08/17 05:40 05:40 05:40 WBC 10.3 D RBC 4.02 Hgb 11.6 L Hct 35.7 L MCV 88.8 MCH 28.9 MCHC 32.5 RDW 13.0 Plt Count 265 MPV 10.7 Gran % 88.7 H Lymph % (Auto) 6.0 L [place] % (Auto) 4.3 Eos % (Auto) 0.9 L Baso % (Auto) 0.1 Gran # 9.12 H Lymph # (Auto) 0.6 L [place] # (Auto) 0.4 Eos # (Auto) 0.1 Baso # (Auto) 0.01 PT 12.2 INR 1.06 Sodium 139 Potassium 4.4 Chloride 103 Carbon Dioxide 26 Anion Gap 15 BUN 9 Creatinine 0.6 L Est GFR ( Amer) > 60 Est GFR (Non-Af Amer) > 60 Random Glucose 105 Calcium 9.3 Phosphorus 4.0 Magnesium 1.9 Total Bilirubin 0.7 Direct Bilirubin 0.4 AST 50 H D ALT 27 Alkaline Phosphatase 84 Total Protein 6.2 Albumin 3.3 Globulin 2.9 Albumin/Globulin Ratio 1.2 Assessment & Plan - Assessment and Plan (Free Text) Assessment: 71yo F with possible mass in tail of pancreas and contracted Gallbladder. Surgery consulted to r/o acute jelly - Abd US noted - CT abd/Pelvis noted - HIDA noted - MRCP noted - no leukocytosis, afebrile. - CA 19-9 and CA 125 elevated Plan: - F/u EUS by GI planned today - Diet recs as per GI - Will need adequate tissue for diagnosis. We will follow up - monitor for signs of GB disease. (Low suspicion for acute GB disease process at this time) - On IV Abx currently - We will follow patient's clinical course and make recommendations accordingly Further recs as per Dr. Mary Neal PGY1 surgery pager: [phone]
[2017-04-08] MEDS: Cefepime 1gm in NS 100ml 1 GM/100 ML BAG IVPB SCH ×2 (10:31→22:54)
[2017-04-08] MEDS: POLYETHYLENE GLYCOL 3350 17 GM/Dose PACKET PO SCH (10:39)
--- NOTE | 2017-04-08 12:58 | CP.PCM.PN ---
Subjective - Date & Time of Evaluation Date of Evaluation: 04/08/17 Time of Evaluation: 12:54 - Subjective Subjective: Patient seen and examined at bedside. Patient with right upper quadrant abdominal pain. Patient unable to have EUS yesterday due to her diet. Patient will be scheduled today. Denies chest pain, shortness of breath, nausea, vomiting, diarrhea, fever. Objective - Vital Signs/Intake and Output Vital Signs (last 24 hours): Temp Pulse Resp BP Pulse Ox 97.7 F 79 18 153/86 H 97 04/08/17 08:43 04/08/17 08:43 04/08/17 08:43 04/08/17 08:43 04/08/17 08:43 Intake and Output: 04/08/17 04/08/17 06:59 18:59 Intake Total 720 Balance 720 - Medications Medications: Current Medications Acetaminophen (Tylenol 325mg Tab) 650 mg PO Q6H PRN PRN Reason: TEMP>=99.5F Acetaminophen (Tylenol 650 Mg Supp) 650 mg RC Q6H PRN PRN Reason: TEMP>=99.5F Docusate Sodium (Colace) 100 mg PO TID [facility] Last Admin: 04/08/17 10:40 Dose: Not Given Heparin Sodium (Porcine) (Heparin) 5,000 units SC Q8 [facility] PRN Reason: Protocol Last Admin: 04/08/17 05:04 Dose: Not Given Hydralazine HCl (Apresoline) 10 mg IVP Q6 PRN PRN Reason: SBP >160 Last Admin: 04/06/17 09:15 Dose: 10 mg Metronidazole (Flagyl) 500 mg in 100 mls @ 100 mls/hr IVPB Q8 [facility] PRN Reason: Protocol Last Admin: 04/08/17 05:12 Dose: 100 mls/hr Cefepime HCl (Maxipime 1gm) 1 gm in 100 mls @ 100 mls/hr IVPB Q12 [facility] PRN Reason: Protocol Last Admin: 04/08/17 10:31 Dose: 100 mls/hr Metoprolol Tartrate (Lopressor) 25 mg PO BRKDIN [facility] Last Admin: 04/08/17 10:31 Dose: 25 mg Morphine Sulfate (Morphine) 2 mg IVP Q4H PRN PRN Reason: Pain, moderate (4-7) Ondansetron HCl (Zofran Inj) 4 mg IVP Q4H PRN PRN Reason: Nausea/Vomiting Pantoprazole Sodium (Protonix Ec Tab) 40 mg PO 0600 [facility] Last Admin: 04/08/17 05:05 Dose: Not Given Polyethylene Glycol (Miralax) 17 gm PO BID [facility] Last Admin: 04/08/17 10:39 Dose: Not Given - Labs Labs: 04/08/17 05:40 04/08/17 05:40 PT 12.2 SECONDS (9.4-12.5) 04/08/17 05:40 INR 1.06 (0.93-1.08) 04/08/17 05:40 APTT 30.8 Seconds (25.1-36.5) 04/06/17 08:40 - Constitutional Appears: Non-toxic, No Acute Distress - Head Exam Head Exam: ATRAUMATIC, NORMAL INSPECTION, NORMOCEPHALIC - ENT Exam ENT Exam: Mucous Membranes Moist, Normal Exam - Respiratory Exam Respiratory Exam: Clear to Ausculation Bilateral, NORMAL BREATHING PATTERN - Cardiovascular Exam Cardiovascular Exam: RRR, +S1, +S2 - GI/Abdominal Exam GI & Abdominal Exam: Soft, Tenderness (RUQ tenderness), Normal Bowel Sounds - Extremities Exam Extremities Exam: Normal Inspection. absent: Calf Tenderness, Pedal Edema - Neurological Exam Neurological Exam: Alert, Awake, Oriented x3 - Psychiatric Exam Psychiatric exam: Normal Affect, Normal Mood - Skin Skin Exam: Intact, Normal Color, Warm Assessment and Plan - Assessment and Plan (Free Text) Plan: 71 year old female with past medical history of hypertension presents to the hospital for abdominal pain. Patient had abdomen/pelvis CT which demonstrated pancreatic neoplasm vs pseudocyst with extensive abdominal ascites. Patient to have follow up EUS by GI for further examination of pancreatic lesion. Patient will also have Surgery consulted for possible cholecystitis and possible biopsy of lesion. Patient will continue on Flagyl and Cefepime for her cholecystitis. Patient is otherwise comfortable and will be continued on current medical regimen. Further recommendations will be based on results of EUS. Will continue to monitor closely. Fred, PGY-2
[2017-04-08] MEDS ORDERED: Midazolam 2 MG/2 ML VIAL ONE ×2 (17:24→19:06)
[2017-04-08] MEDS ORDERED: Propofol 10 mg/ml Inj (20 ML) ONE ×6 (17:24→19:57)
[2017-04-08] MEDS: Sodium Chloride 0.9% 1,000 ML IV SCH (22:55)
[2017-04-09] MEDS: POLYETHYLENE GLYCOL 3350 17 GM/Dose PACKET PO SCH ×3 (00:30→17:25)
--- NOTE | 2017-04-09 01:41 | PN ---
DATE: 04/08/2017 SUBJECTIVE: The patient is seen lying in room 366, bed 1. The patient's friends and family are at bedside. The patient's overnight nurse's notes were reviewed. The patient was found to slept overnight. According to the nurses' note, the patient had episode of abdominal pain. The patient was given a dose of Toradol by the medical health researcher. The patient is presently on n.p.o. diet. PHYSICAL EXAMINATION: VITAL SIGNS: T-max 98.2 to 98; heart rate 79, 78, 83; blood pressure 153/86, 146/75, 162/89, 140/60. Respiration 20, O2 sat is 99 to 94 to 97%. HEENT: Head examination normocephalic, atraumatic. HEENT examination shows pinkish conjunctivae. Anicteric sclerae. No oropharyngeal lesion. No neck rigidity. CHEST: Kyphosis. LUNGS: Shows no rales, crackles or wheezing. CARDIOVASCULAR: S1, S2. Regular rhythm. ABDOMEN: Soft, distended. No hepatosplenomegaly palpated. No guarding. No rigidity. No rebound tenderness. GENITALIA: Female. RECTAL: Deferred. EXTREMITY: Shows no pitting edema, no calf tenderness, no Homans' sign. NEUROLOGIC: The patient is alert, awake, oriented x3. Cranial nerves II through XII limited. Gait examination is not tested. VASCULAR: Palpable pulses. MUSCULOSKELETAL: Shows a body mass index of 20. DIAGNOSTICS: On 04/08/2017, WBC 10.3, hemoglobin and hematocrit 11.6 and 35.7, platelet 265. Granulocytes 88% segs. Sodium 139, potassium 4.4, chloride 103, CO2 of 26, anion gap 15, BUN 9, creatinine 0.6, GFR greater than 60, glucose 152, hemoglobin A1c 6.1. LFTs are normal except AST of 50. Rest of the LFTs are normal. Hepatitis A and HIV are negative. The patient is awaiting to undergo EGD and EUS. IMPRESSION AND PLAN: 1. Abdominal pain. 2. Weight loss. 3. Elevated CA19-9 and CA-125. 4. Severe ascites. 5. Questionable hemochromatosis with hepatic iron deposition. 6. Possible pancreatic neoplasm with pancreatic ductal obstruction and enlargement of the pancreatic tail with dilated pancreatic duct at the tip of the pancreatic tail with areas of non-enhancement. 7. Hypertension. 8. Granulocytosis. 9. Normocytic anemia. 10. Granulocytosis. 11. Prediabetes with hyperglycemia and hemoglobin A1c of 6.1. 12. Transaminitis. 13. Questionable acute cholecystitis with nonvisualization of the gallbladder on the HIDA scan. 14. Enlargement of the pancreatic tail with dilated ducts of the pancreatic tip tail. 15. Possible pancreatic neoplasm with pancreatic ductal dilatation. 16. Probable hemochromatosis of the liver. 17. Uterine fibroid and myomas. 18. Questionable acalculous cholecystitis. 19. Status post MRCP. 1. Abdominal pain. 2. Status post magnetic resonance cholangiopancreatography. 3. Weight loss. 4. Elevated CA19-9, and CA-125. 5. Severe ascites. 6. Questionable hemochromatosis with hepatic iron deposition. 7. Possible pancreatic neoplasm with pancreatic ductal obstruction and enlargement of the pancreatic tail with dilated pancreatic duct at the tip of the pancreatic tail with area of non-enhancement. 8. Hypertension. 9. Granulocytosis. 10. Normocytic anemia. 11. Prediabetes. 12. Posterior uterine myoma, partially calcified, with anteverted uterus. 13. Non-visualized . 14. 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 15. Nonvisualization of the gallbladder and questionable acute cholecystitis. 16. Questionable possible acute cholecystitis with contracted gallbladder with 6 mm gallbladder wall thickening. 1. Abdominal pain, etiology undetermined. 2. Hypertension. 3. Transient tachycardia. 4. Normocytic anemia with granulocytosis. 5. Hyperglycemia. 6. Possible iron-deficiency anemia. 7. Elevated CA19-9 and CA-125 level. 8. 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 9. Heterogenous hepatic appearance suspicious for hepatocellular disease. 10. Ascites. 11. Contracted gallbladder with 6 mm gallbladder wall thickening. 12. Hiatal hernia. 13. Bibasilar atelectasis. 14. Nodular liver. 15. Peripancreatic fluid infiltration. 16. Pancreatic tail heterogenous hypodensity, possible pancreatic neoplasm. 17. Moderate right-sided extrarenal pelvic distention. 18. Diverticulosis. 19. Questionable enteritis versus ileus versus slow transit versus peristalsis. 20. Calcified heterogenous uterus. 21. Large intraperitoneal abdominopelvic ascites. 22. Bilateral hip prosthesis. 23. Degenerative joint disease of the lumbar spine. 24. Subcentimeter mesenteric lymphadenopathy. 25. 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 26. History of hypertension. 27. Abdominal pain. 28. Bilateral hip replacement. 29. Iron deficiency. 30. Hyperglycemia. 31. Constipation. 32. Normocytic iron-deficiency anemia. 33. Elevated CA19-9 and elevated CA-125 antigen. 34. Granulocytosis. Plan at this time, the patient is awaiting EGD and EUS. The patient has been ordered repeat labs. Current consultation: Gastroenterology, Surgery. Current medications: Hydralazine 10 mg IV q. 6 hours p.r.n., Colace 100 mg three times a day, Flagyl 500 IV q. 8, heparin 5000 subcu q. 8, Lopressor 25 mg twice a day, Cefepime 1 g IV q. 12, MiraLax 17 g twice a day, morphine 2 mg IV q. 4 hours p.r.n., Protonix 40 mg daily, IV fluid 0.9 normal saline at 100 mL an hour, Tylenol 650 mg p.o. and suppository q. 6 hours p.r.n., Zofran 4 mg IV q. 4 p.r.n. The patient has been ordered out of bed, Alta Healy. Occupational therapy, physical therapy ordered. The patient is seen by physical therapist. Their recommendation is the patient is not a candidate for physical therapy. The patient is independent. Dictated and electronically signed, not read. Sky Cline MD MTDD
[2017-04-09] MEDS: metroNIDAZOLE IV 500 mg/100 ml 500 MG/100 ML BAG IVPB SCH ×3 (06:26→21:44)
[2017-04-09] MEDS: Pantoprazole 40 mg EC Tab PO SCH (06:27)
[2017-04-09] MEDS: Sodium Chloride 0.9% 1,000 ML IV SCH (06:28)
[2017-04-09 06:31] LABS: BASO # 0.02 K/mm3 (0.0-2.0); BASO % 0.3 % (0.0-3.0); EOS # 0.1 (0.0-0.7); GRAN # 5.1 (1.4-6.5); GRAN % 74.5 % (50.0-68.0); HEMOGLOBIN 10.1 g/dL (12.0-16.0); LYMPH # 0.9 (1.2-3.4); LYMPH % 13.7 % (22.0-35.0); MEAN CELL VOLUME 89.5 fl (80.0-105.0); MEAN CORPUSCULAR HEMOGLOBIN 28.8 pg (25.0-35.0); MEAN CORPUSCULAR HGB CONC 32.2 g/dl (31.0-37.0); MEAN PLATELET VOLUME 10.3 fl (7.0-11.0); MONO # 0.7 (0.1-0.6); MONO % 10.5 % (1.0-6.0); RBC 3.51 10^6/uL (3.5-6.1); WHITE BLOOD COUNT 6.9 10^3/ul (4.5-11.0)
[2017-04-09 07:21] LABS: ALBUMIN 2.6 g/dL (3.0-4.8); ALT/SGPT 28 U/L (7-56); AST/SGOT 28 U/L (14-36); BILIRUBIN,DIRECT 0.3 mg/dL (0.0-0.4); BLOOD UREA NITROGEN 10 mg/dL (7-21); CALCIUM 8.8 mg/dL (8.4-10.5); GFR AFRICAN-AMERICAN > 60; GFR NON-AFRICAN AMERICAN > 60; MAGNESIUM 1.9 mg/dL (1.7-2.2)
--- NOTE | 2017-04-09 07:28 | CP.PCM.PN ---
Subjective - Date & Time of Evaluation Date of Evaluation: 04/09/17 Time of Evaluation: 07:00 - Subjective Subjective: Patient seen and examined at bedside this AM. No adverse events overnight. Patient reports that she has persistent tenderness but it is improved from yesterday Objective - Vital Signs/Intake and Output Vital Signs (last 24 hours): Temp Pulse Resp BP Pulse Ox 97.7 F 61 18 123/73 99 04/08/17 20:30 04/08/17 20:30 04/08/17 20:30 04/08/17 20:30 04/08/17 20:30 Intake and Output: 04/09/17 04/09/17 06:59 18:59 Intake Total 820 Balance 820 - Medications Medications: Current Medications Acetaminophen (Tylenol 325mg Tab) 650 mg PO Q6H PRN PRN Reason: TEMP>=99.5F Acetaminophen (Tylenol 650 Mg Supp) 650 mg RC Q6H PRN PRN Reason: TEMP>=99.5F Docusate Sodium (Colace) 100 mg PO TID [facility] Last Admin: 04/09/17 00:30 Dose: Not Given Heparin Sodium (Porcine) (Heparin) 5,000 units SC Q8 [facility] PRN Reason: Protocol Last Admin: 04/08/17 05:04 Dose: Not Given Hydralazine HCl (Apresoline) 10 mg IVP Q6 PRN PRN Reason: SBP >160 Last Admin: 04/06/17 09:15 Dose: 10 mg Metronidazole (Flagyl) 500 mg in 100 mls @ 100 mls/hr IVPB Q8 [facility] PRN Reason: Protocol Last Admin: 04/09/17 06:26 Dose: 100 mls/hr Cefepime HCl (Maxipime 1gm) 1 gm in 100 mls @ 100 mls/hr IVPB Q12 [facility] PRN Reason: Protocol Last Admin: 04/08/17 22:54 Dose: 100 mls/hr Sodium Chloride (Sodium Chloride 0.9%) 1,000 mls @ 100 mls/hr IV .Q10H [facility] Last Admin: 04/09/17 06:28 Dose: 100 mls/hr Metoprolol Tartrate (Lopressor) 25 mg PO BRKDIN [facility] Last Admin: 04/09/17 00:30 Dose: Not Given Morphine Sulfate (Morphine) 2 mg IVP Q4H PRN PRN Reason: Pain, moderate (4-7) Ondansetron HCl (Zofran Inj) 4 mg IVP Q4H PRN PRN Reason: Nausea/Vomiting Pantoprazole Sodium (Protonix Ec Tab) 40 mg PO 0600 [facility] Last Admin: 04/09/17 06:27 Dose: Not Given Polyethylene Glycol (Miralax) 17 gm PO BID [facility] Last Admin: 04/09/17 00:30 Dose: Not Given - Labs Labs: 04/09/17 05:45 04/09/17 05:45 PT 12.2 SECONDS (9.4-12.5) 04/08/17 05:40 INR 1.06 (0.93-1.08) 04/08/17 05:40 APTT 30.8 Seconds (25.1-36.5) 04/06/17 08:40 - Constitutional Appears: Non-toxic, No Acute Distress - Head Exam Head Exam: ATRAUMATIC, NORMOCEPHALIC - Eye Exam Eye Exam: Normal appearance. absent: Conjunctival injection, Scleral icterus - ENT Exam ENT Exam: Mucous Membranes Moist, Normal Oropharynx - Respiratory Exam Respiratory Exam: NORMAL BREATHING PATTERN. absent: Accessory Muscle Use, Respiratory Distress - Cardiovascular Exam Cardiovascular Exam: RRR - GI/Abdominal Exam GI & Abdominal Exam: Soft, Tenderness (moderate tenderness epigastrium and RUQ) . absent: Distended - Extremities Exam Extremities Exam: absent: Calf Tenderness, Pedal Edema, Tenderness - Neurological Exam Neurological Exam: Alert, Awake, Oriented x3 - Psychiatric Exam Psychiatric exam: Normal Affect, Normal Mood - Skin Skin Exam: Dry, Normal Color, Rash, Warm Assessment and Plan - Assessment and Plan (Free Text) Assessment: 71F with epigastric abdominal pain, pancreatic mass, and thickened gall bladder Plan: -F/U pathology after biopsy is performed -F/U GI recs -PRN pain and nausea medication -No surgical intervention indicated at this point--etiology of this presentation uncertain -Will continue to follow Discussed with Dr. Mary De La Torre, PGY2
[2017-04-09] MEDS: Potassium Chloride 20 mEq ER Tab PO SCH ×2 (09:32→13:22)
[2017-04-09] MEDS: Cefepime 1gm in NS 100ml 1 GM/100 ML BAG IVPB SCH ×2 (09:33→21:44)
--- NOTE | 2017-04-09 20:39 | US ---
PROCEDURE: Ultrasound guided paracentesis. HISTORY: Pancreatic mass. Ascites. Evaluate for malignancy. PHYSICIAN(S): Valeriano Clark MD. TECHNIQUE: The relative risks and indications for the procedure were explained to the patient and informed written consent obtained. Sonography of the abdomen was performed in a supine position. This revealed a small to moderate amount of non-loculated ascites, greatest in the right lower quadrant. A puncture site was selected and the area was prepped and draped in the usual sterile fashion. 1% Xylocaine was used to anesthetize the skin and soft tissues. A 7 Pashto paracentesis catheter was trocared into the right lower quadrantand 2800 cc of preston fluid aspirated. A cytology specimen was sent. IMPRESSION: Ultrasound-guided paracentesis in the right lower quadrant. 2800 cc of fluid were aspirated. A cytology specimen was sent.
--- NOTE | 2017-04-09 23:40 | CP.PCM.PN ---
Objective - Vital Signs/Intake and Output Vital Signs (last 24 hours): Temp Pulse Resp BP Pulse Ox 98.5 F 78 19 152/72 H 98 04/09/17 16:00 04/09/17 16:00 04/09/17 16:00 04/09/17 16:00 04/09/17 16:00 Intake and Output: 04/09/17 04/10/17 18:59 06:59 Intake Total 120 Balance 120 - Medications Medications: Current Medications Acetaminophen (Tylenol 325mg Tab) 650 mg PO Q6H PRN PRN Reason: TEMP>=99.5F Acetaminophen (Tylenol 650 Mg Supp) 650 mg RC Q6H PRN PRN Reason: TEMP>=99.5F Docusate Sodium (Colace) 100 mg PO TID [facility] Last Admin: 04/09/17 17:25 Dose: Not Given Heparin Sodium (Porcine) (Heparin) 5,000 units SC Q8 [facility] PRN Reason: Protocol Last Admin: 04/09/17 22:43 Dose: Not Given Hydralazine HCl (Apresoline) 10 mg IVP Q6 PRN PRN Reason: SBP >160 Last Admin: 04/06/17 09:15 Dose: 10 mg Metronidazole (Flagyl) 500 mg in 100 mls @ 100 mls/hr IVPB Q8 [facility] PRN Reason: Protocol Last Admin: 04/09/17 21:44 Dose: 100 mls/hr Cefepime HCl (Maxipime 1gm) 1 gm in 100 mls @ 100 mls/hr IVPB Q12 [facility] PRN Reason: Protocol Last Admin: 04/09/17 21:44 Dose: 100 mls/hr Sodium Chloride (Sodium Chloride 0.9%) 1,000 mls @ 100 mls/hr IV .Q10H [facility] Last Admin: 04/09/17 06:28 Dose: 100 mls/hr Metoprolol Tartrate (Lopressor) 25 mg PO BRKDIN [facility] Last Admin: 04/09/17 17:25 Dose: Not Given Morphine Sulfate (Morphine) 2 mg IVP Q4H PRN PRN Reason: Pain, moderate (4-7) Ondansetron HCl (Zofran Inj) 4 mg IVP Q4H PRN PRN Reason: Nausea/Vomiting Pantoprazole Sodium (Protonix Ec Tab) 40 mg PO 0600 [facility] Last Admin: 04/09/17 06:27 Dose: Not Given Polyethylene Glycol (Miralax) 17 gm PO BID [facility] Last Admin: 04/09/17 17:25 Dose: Not Given - Labs Labs: 04/09/17 05:45 04/09/17 05:45 PT 12.2 SECONDS (9.4-12.5) 04/08/17 05:40 INR 1.06 (0.93-1.08) 04/08/17 05:40 APTT 30.8 Seconds (25.1-36.5) 04/06/17 08:40
--- NOTE | 2017-04-09 23:47 | PN ---
DATE: 04/09/2017 LOCATION: Patient is seen in room 366, bed 1. SUBJECTIVE: Patient's friend and family are at bedside. Patient is seen lying in the bed. Patient is alert, awake, responsive. Overnight nurse's notes were reviewed. Patient was found to be without any adverse events documented. Patient was noted by nurses to be ambulatory. Patient is refusing SCDs and HAO stockings and heparin despite patient education, but patient continued to refuse. Patient underwent endoscopy and EGD and EUS yesterday, the results are still pending. PHYSICAL EXAMINATION: VITAL SIGNS: T-max 98.5. Pulse 78, 61, 66, 65. Blood pressure in the last 24 hours 153/86, 146/75, 162/89, 140/66, 123/73, 139/69. Respiration 18. O2 sat 96 to 98%. HEAD: Normocephalic, atraumatic. HEENT: Shows pinkish pale conjunctivae. Anicteric sclerae. No oropharyngeal lesion. No neck rigidity. CHEST: Kyphosis. LUNGS: Shows no rales, crackles, or wheezing. CARDIOVASCULAR: S1, S2, regular rhythm. ABDOMEN: Soft. Positive ascites, positive protuberance. No hepatosplenomegaly appreciated. No guarding. No rigidity. No rebound tenderness. GENITALIA: Female. RECTAL: Deferred. EXTREMITIES: Show no pitting, no calf numbness, no Homans' sign. NEUROLOGIC: Patient is alert, awake, oriented x3. Cranial nerves II through XII intact. Gait examination not tested. VASCULAR: Palpable pulses. PSYCHIATRIC: Not applicable. DIAGNOSTIC STUDIES: On 04/09, WBC 6.9, hemoglobin/hematocrit 10.1/31.4, platelet 251. Granulocytes 74% segs. Sodium 141, potassium 3.5, chloride 109, CO2 of 24, anion gap 12, BUN 10, creatinine 0.7, GFR greater than 60, glucose 88, calcium 8.8, phosphorus 3.4, magnesium 1.9. LFTs are normal. Total protein 5.2, albumin 2.6. Hepatitis A, B, C serologies and HIV is negative. Patient was ordered CT of the pancreatic protocol. Patient was consulted by Dr. Valeriano Clark by Gastroenterology for diagnostic and therapeutic paracentesis, which the patient underwent. Patient had an ultrasound-guided paracentesis of the right lower quadrant and almost 3000 mL, 3 liters of ascites fluid was removed. IMPRESSION: 1. Status post diagnostic, therapeutic ultrasound-guided paracentesis with removal of 2800 mL of ascitic fluid. 2. Hypertension. 3. Normocytic anemia with granulocytosis. 4. Hypokalemia. 5. Prediabetes with hemoglobin A1c of 6.1. 6. Hyperglycemia with prediabetes and hemoglobin A1c of 6.1. 7. Mild protein malnutrition and hypoalbuminemia. 8. Elevated CA 19-9 and elevated CA-125 markers. 9. Questionable hepatic hemochromatosis. 10. Contracted gallbladder. 11. Pancreatic tail enlargement with dilated pancreatic tail tip, pancreatic duct with area of non-enhancement. 12. Possible pancreatic neoplasm with ductal obstruction. 13. Severe ascites. 14. Multiple uterine myomas. 15. Anteverted uterus. 16. Non-visualized ovaries. 17. Status post ultrasound-guided paracentesis. 18. Status post esophagogastroduodenoscopy and endoscopic ultrasound with fine-needle aspiration. 19. Hiatal hernia. 20. Duodenitis. 21. Congestive gastropathy versus portal gastropathy. 1. Abdominal pain. 2. Weight loss. 3. Elevated CA19-9 and CA-125. 4. Severe ascites. 5. Questionable hemochromatosis with hepatic iron deposition. 6. Possible pancreatic neoplasm with pancreatic ductal obstruction and enlargement of the pancreatic tail with dilated pancreatic duct at the tip of the pancreatic tail with areas of non-enhancement. 7. Hypertension. 8. Granulocytosis. 9. Normocytic anemia. 10. Granulocytosis. 11. Prediabetes with hyperglycemia and hemoglobin A1c of 6.1. 12. Transaminitis. 13. Questionable acute cholecystitis with nonvisualization of the gallbladder on the HIDA scan. 14. Enlargement of the pancreatic tail with dilated ducts of the pancreatic tip tail. 15. Possible pancreatic neoplasm with pancreatic ductal dilatation. 16. Probable hemochromatosis of the liver. 17. Uterine fibroid and myomas. 18. Questionable acalculous cholecystitis. 19. Status post MRCP. 1. Abdominal pain. 2. Status post magnetic resonance cholangiopancreatography. 3. Weight loss. 4. Elevated CA19-9, and CA-125. 5. Severe ascites. 6. Questionable hemochromatosis with hepatic iron deposition. 7. Possible pancreatic neoplasm with pancreatic ductal obstruction and enlargement of the pancreatic tail with dilated pancreatic duct at the tip of the pancreatic tail with area of non-enhancement. 8. Hypertension. 9. Granulocytosis. 10. Normocytic anemia. 11. Prediabetes. 12. Posterior uterine myoma, partially calcified, with anteverted uterus. 13. Non-visualized . 14. 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 15. Nonvisualization of the gallbladder and questionable acute cholecystitis. 16. Questionable possible acute cholecystitis with contracted gallbladder with 6 mm gallbladder wall thickening. 1. Abdominal pain, etiology undetermined. 2. Hypertension. 3. Transient tachycardia. 4. Normocytic anemia with granulocytosis. 5. Hyperglycemia. 6. Possible iron-deficiency anemia. 7. Elevated CA19-9 and CA-125 level. 8. 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 9. Heterogenous hepatic appearance suspicious for hepatocellular disease. 10. Ascites. 11. Contracted gallbladder with 6 mm gallbladder wall thickening. 12. Hiatal hernia. 13. Bibasilar atelectasis. 14. Nodular liver. 15. Peripancreatic fluid infiltration. 16. Pancreatic tail heterogenous hypodensity, possible pancreatic neoplasm. 17. Moderate right-sided extrarenal pelvic distention. 18. Diverticulosis. 19. Questionable enteritis versus ileus versus slow transit versus peristalsis. 20. Calcified heterogenous uterus. 21. Large intraperitoneal abdominopelvic ascites. 22. Bilateral hip prosthesis. 23. Degenerative joint disease of the lumbar spine. 24. Subcentimeter mesenteric lymphadenopathy. 25. 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 26. History of hypertension. 27. Abdominal pain. 28. Bilateral hip replacement. 29. Iron deficiency. 30. Hyperglycemia. 31. Constipation. 32. Normocytic iron-deficiency anemia. 33. Elevated CA19-9 and elevated CA-125 antigen. 34. Granulocytosis. PLAN: At this time, patient was ordered a pancreatic protocol CT by the technical aid. Patient has been updated about the present recommendation by Gastroenterology and Surgery. Patient was seen by Surgery. Their recommendation is that patient does not seem to have an acute acalculous cholecystitis and no surgical intervention is needed at this time. Patient has been ordered serial labs. CURRENT CONSULTATIONS: 1. Surgery. 2. Gastroenterology. 3. Interventional Radiology. Patient's case is referred to transitional care unit. CURRENT MEDICATIONS: 1. Hydralazine 10 mg IV q.6 p.r.n. 2. Colace 100 mg three times a day. 3. Flagyl 500 IV q.8. 4. Heparin 5000 subcu q.8. 5. Lopressor 25 mg twice a day. 6. Maxipime 1 g IV q.12. 7. MiraLax 17 g twice a day. 8. Morphine 2 mg IV q.4 p.r.n. 9. Protonix 40 mg daily. 10. IV fluids ordered by the anesthesiologist which can be discontinued. 11. Patient was given Toradol 30 mg for pain. 12. Patient is on Tylenol p.r.n. 13. Zofran 4 mg IV q.4 p.r.n. Patient's pancreatic protocol CT results are pending. Patient has been ordered liquid diet for anticipated repeat endoscopy by Dr. Leal. Patient has been ordered HAO stockings, physical therapy, out of bed to chair, occupational therapy, physical therapy ordered. Patient and the patient's family updated about the patient's condition, diagnosis, which they acknowledged understand. Dictated and electronically signed, not read. Sky Cline MD [facility]
[2017-04-10] MEDS: Pantoprazole 40 mg EC Tab PO SCH (05:55)
[2017-04-10] MEDS: metroNIDAZOLE IV 500 mg/100 ml 500 MG/100 ML BAG IVPB SCH ×3 (05:55→21:06)
[2017-04-10] MEDS: Sodium Chloride 0.9% 1,000 ML IV SCH ×2 (05:56→21:07)
[2017-04-10 06:28] LABS: BASO # 0.01 K/mm3 (0.0-2.0); BASO % 0.1 % (0.0-3.0); EOS # 0.1 (0.0-0.7); EOS % 0.9 % (1.5-5.0); GRAN # 5.76 (1.4-6.5); GRAN % 76.6 % (50.0-68.0); HEMOGLOBIN 10.4 g/dL (12.0-16.0); LYMPH # 1.1 (1.2-3.4); LYMPH % 15.2 % (22.0-35.0); MEAN CELL VOLUME 88.6 fl (80.0-105.0); MEAN CORPUSCULAR HEMOGLOBIN 28.3 pg (25.0-35.0); MEAN CORPUSCULAR HGB CONC 31.9 g/dl (31.0-37.0); MEAN PLATELET VOLUME 10.5 fl (7.0-11.0); MONO # 0.5 (0.1-0.6); MONO % 7.2 % (1.0-6.0); RBC 3.68 10^6/uL (3.5-6.1); RED CELL DISTRIBUTION WIDTH 12.9 % (11.5-14.5); WHITE BLOOD COUNT 7.5 10^3/ul (4.5-11.0)
[2017-04-10 06:48] LABS: ALB/GLOB RATIO 1.1 (1.1-1.8); ALBUMIN 2.8 g/dL (3.0-4.8); ALT/SGPT 42 U/L (7-56); AST/SGOT 33 U/L (14-36); BILIRUBIN,DIRECT 0.3 mg/dL (0.0-0.4); BLOOD UREA NITROGEN 8 mg/dL (7-21); CALCIUM 8.6 mg/dL (8.4-10.5); GFR AFRICAN-AMERICAN > 60; GFR NON-AFRICAN AMERICAN > 60; MAGNESIUM 1.8 mg/dL (1.7-2.2)
--- NOTE | 2017-04-10 07:51 | CP.PCM.PN ---
Subjective - Date & Time of Evaluation Date of Evaluation: 04/10/17 Time of Evaluation: 07:48 - Subjective Subjective: General surgery progress note for Dr. Hernandez Patient seen and examined at bedside. No acute events overnight, patient denies any complaints including nausea, vomiting, and diarrhea. Objective - Vital Signs/Intake and Output Vital Signs (last 24 hours): Temp Pulse Resp BP Pulse Ox 98.5 F 78 19 152/72 H 98 04/09/17 16:00 04/09/17 16:00 04/09/17 16:00 04/09/17 16:00 04/09/17 16:00 Intake and Output: 04/10/17 04/10/17 06:59 18:59 Intake Total 120 0 Output Total 4 Balance 120 -4 - Medications Medications: Current Medications Acetaminophen (Tylenol 325mg Tab) 650 mg PO Q6H PRN PRN Reason: TEMP>=99.5F Acetaminophen (Tylenol 650 Mg Supp) 650 mg RC Q6H PRN PRN Reason: TEMP>=99.5F Docusate Sodium (Colace) 100 mg PO TID [facility] Last Admin: 04/09/17 17:25 Dose: Not Given Heparin Sodium (Porcine) (Heparin) 5,000 units SC Q8 [facility] PRN Reason: Protocol Last Admin: 04/10/17 05:55 Dose: Not Given Hydralazine HCl (Apresoline) 10 mg IVP Q6 PRN PRN Reason: SBP >160 Last Admin: 04/06/17 09:15 Dose: 10 mg Metronidazole (Flagyl) 500 mg in 100 mls @ 100 mls/hr IVPB Q8 [facility] PRN Reason: Protocol Last Admin: 04/10/17 05:55 Dose: 100 mls/hr Cefepime HCl (Maxipime 1gm) 1 gm in 100 mls @ 100 mls/hr IVPB Q12 [facility] PRN Reason: Protocol Last Admin: 04/09/17 21:44 Dose: 100 mls/hr Sodium Chloride (Sodium Chloride 0.9%) 1,000 mls @ 100 mls/hr IV .Q10H [facility] Last Admin: 04/10/17 05:56 Dose: 100 mls/hr Metoprolol Tartrate (Lopressor) 25 mg PO BRKDIN [facility] Last Admin: 04/09/17 17:25 Dose: Not Given Morphine Sulfate (Morphine) 2 mg IVP Q4H PRN PRN Reason: Pain, moderate (4-7) Ondansetron HCl (Zofran Inj) 4 mg IVP Q4H PRN PRN Reason: Nausea/Vomiting Pantoprazole Sodium (Protonix Ec Tab) 40 mg PO 0600 [facility] Last Admin: 04/10/17 05:55 Dose: 40 mg Polyethylene Glycol (Miralax) 17 gm PO BID [facility] Last Admin: 04/09/17 17:25 Dose: Not Given - Labs Labs: 04/10/17 05:30 04/10/17 05:30 PT 12.2 SECONDS (9.4-12.5) 04/08/17 05:40 INR 1.06 (0.93-1.08) 04/08/17 05:40 APTT 30.8 Seconds (25.1-36.5) 04/06/17 08:40 - Constitutional Appears: Well - Head Exam Head Exam: ATRAUMATIC, NORMAL INSPECTION, NORMOCEPHALIC - Eye Exam Eye Exam: EOMI, Normal appearance, PERRL Pupil Exam: NORMAL ACCOMODATION, PERRL - ENT Exam ENT Exam: Mucous Membranes Moist, Normal Exam - Neck Exam Neck Exam: Full ROM, Normal Inspection. absent: Lymphadenopathy - Respiratory Exam Respiratory Exam: Clear to Ausculation Bilateral, NORMAL BREATHING PATTERN - Cardiovascular Exam Cardiovascular Exam: REGULAR RHYTHM, +S1, +S2. absent: Murmur - GI/Abdominal Exam GI & Abdominal Exam: Soft, Normal Bowel Sounds. absent: Tenderness - Extremities Exam Extremities Exam: Full ROM, Normal Capillary Refill, Normal Inspection. absent : Joint Swelling, Pedal Edema - Back Exam Back Exam: NORMAL INSPECTION - Neurological Exam Neurological Exam: Alert, Awake, CN II-XII Intact, Normal Gait, Oriented x3 - Psychiatric Exam Psychiatric exam: Normal Affect, Normal Mood - Skin Skin Exam: Dry, Intact, Normal Color, Warm Assessment and Plan - Assessment and Plan (Free Text) Assessment: 71F with epigastric abdominal pain, pancreatic mass, and thickened gall bladder Plan: -F/U pathology after biopsy is performed -F/U GI recs -PRN pain and nausea medication -No surgical intervention indicated at this point--etiology of this presentation uncertain -Will continue to follow
[2017-04-10] MEDS ORDERED: Potassium Chloride 20 mEq ER Tab PO ONE (08:29)
--- NOTE | 2017-04-10 10:12 | CT ---
PROCEDURE: CT Abdomen and Pelvis with and without intravenous contrast HISTORY: pancreatic lesion COMPARISON: None. TECHNIQUE: Axial images of the abdomen were obtained in the pre contrast, portal venous and delayed phases of enhancement. Coronal and sagittal reformats were generated. Contrast dose: 150 cc of Omni 350 Radiation dose: Total exam DLP = 530 mGy-cm. This CT exam was performed using one or more of the following dose reduction techniques: Automated exposure control, adjustment of the mA and/or kV according to patient size, and/or use of iterative reconstruction technique. FINDINGS: LOWER THORAX: Unremarkable. LIVER: There is a 10 mm hypodense lesion in the periphery of the posterior right lobe of the liver. This is best seen on image 34 series 7 GALLBLADDER AND BILE DUCTS: Unremarkable. PANCREAS: There is a hypodense lesion in the tail of the pancreas the corresponds to the MRI finding. Dilated ducts are seen distally. The findings are best visualized on image 46 series 5. SPLEEN: Unremarkable. ADRENALS: Unremarkable. No mass. KIDNEYS AND URETERS: Unremarkable. No hydronephrosis. No solid mass. VASCULATURE: Unremarkable. No aortic aneurysm. BOWEL: Unremarkable. No obstruction. No gross mural thickening. APPENDIX: Normal appendix. PERITONEUM: Unremarkable. No free fluid. No free air. LYMPH NODES: Unremarkable. No enlarged lymph nodes. BLADDER: Unremarkable. REPRODUCTIVE: Unremarkable. BONES: No acute fracture. OTHER FINDINGS: None. IMPRESSION: Hypodense lesion in the pancreatic tail which corresponds to MRI findings. Moderate to severe ascites. There is a 10 mm hypodense lesion in the periphery of the posterior right lobe of the liver. Possible metastatic lesion
[2017-04-10] MEDS: Cefepime 1gm in NS 100ml 1 GM/100 ML BAG IVPB SCH ×2 (10:18→22:51)
[2017-04-10] MEDS: POLYETHYLENE GLYCOL 3350 17 GM/Dose PACKET PO SCH ×3 (10:18→18:12)
[2017-04-10] MEDS ORDERED: Midazolam 2 MG/2 ML VIAL ONE (15:27)
[2017-04-10] MEDS ORDERED: Propofol 10 mg/ml Inj (20 ML) ONE (15:27)
[2017-04-10] MEDS ORDERED: Lidocaine 2% Inj (20ml) ONE (15:28)
[2017-04-10 17:06] VITALS: RESP 18
--- NOTE | 2017-04-10 17:39 | PN ---
DATE:04/09/2017 SUBJECTIVE: This patient was seen and evaluated earlier today. The patient is comfortable, denies any abdominal pain and vomiting. PHYSICAL EXAMINATION VITAL SIGNS:: Temperature is afebrile, blood pressure 123/73, O2 saturation 99% on 3 liters, respirations 18. HEENT: Atraumatic, anicteric. NECK: Supple. HEART: S1, S2 heard. LUNGS: Bilateral air entry present. ABDOMEN: Soft. Bowel sounds present. EXTREMITIES: No cyanosis, no clubbing. NEUROLOGIC: Alert, oriented. Moving all extremities. LABORATORY DATA: Hemoglobin 10.1, hematocrit 31.4, WBC 6.9, platelets 251. Chemistries showed LFTs essentially unremarkable. Potassium 3.5. IMPRESSION: This 71-year-old patient admitted with weight loss, abdominal discomfort, found to have ascites and questionable pancreatic lesion. Patient had esophagogastroduodenoscopy with endoscopic ultrasound examination yesterday, found to have ill-defined hypoechoic area present in the distal body tail area. Significant amount of ascites present. Ultrasound guided aspiration of the fluid was done and ascitic fluid was then sent for chemistry and cytology. The hypoechoic area is ill-defined. There is increased amount of vascular activities seen around. Decision was not to go. The patient also had increased CA19-9 and also CEA level elevated. Transvaginal sonogram showed ovaries not identified, but there are 3 uterine myomata identified. Fluid and debris noticed inside the endometrial cavity. RECOMMENDATIONS: 1. Follow up with the ascitic fluid analysis. 2. I had a detailed discussion with radiologist, and also with Dr. Valeriano Clark. The plan is to do a CT-guided paracentesis and sent it for ascitic fluid and repeat the CT with the pancreatic protocol, then consider after reviewing the above workup, also consider, repeating the EUS versus CT-guided aspiration of the pancreatic lesion if it is definitely discrete lesion noticeable. Discussed with Dr. Cline and also family members at length. Thank you very much for allowing us to participate in the care of the patient. Karson Leal MD [facility]
[2017-04-11] MEDS: Sodium Chloride 0.9% 1,000 ML IV SCH (03:14)
--- NOTE | 2017-04-11 04:28 | PN ---
DATE: SUBJECTIVE: This patient was seen and evaluated earlier today. The patient is comfortable. Not in acute distress. PHYSICAL EXAMINATION: VITAL SIGNS: Afebrile. Blood pressure is 113/63, respirations 18, O2 saturation is 99%. HEENT: Atraumatic, anicteric. NECK: Supple. HEART: S1 and S2 heard. LUNGS: Bilateral air entry present. ABDOMEN: Soft. Bowel sounds present. EXTREMITIES: No cyanosis. No clubbing. NEUROLOGICAL: Alert, oriented, moves all the extremities. LABORATORY DATA: WBC count 7.5, hemoglobin 10.4, hematocrit 32.6, platelets 250. LFTs essentially unremarkable. The patient's peritoneal fluid analysis results still pending. Cytology is still pending. The patient had a CT scan of the abdomen, per the pancreatic protocol was done which was reviewed. The pancreatic lesion appeared to have hypodense lesion in the distal body close to the tail. Much more obviously noticed in the pancreatic protocol CT. IMPRESSION: This 71-year-old patient admitted with abdominal pain, weight loss, found to have ascites with hypodense lesion in the tail of the pancreas status post EGD with EUS done on 04/08/2017. There is a small ill-defined hypoechoic area noted in the body of the pancreas close to the tail. There is abrupt termination of the pancreatic duct at that level noticed. I have again discussed with the radiologist about the lesion in pancreatic protocol CT and also with Dr. Valeriano Clark. The patient is scheduled for repeat endoscopic ultrasound and for possible fine needle aspiration biopsy. Risks, benefits and alternatives were explained. Informed consent was obtained. endoscopic findings, there was about 2 x 2.5 cm hypoechoic lesion noticed in the distal body area. Fine needle aspiration biopsy done with the 3 passes. One was with 25-gauge Acquire needle with fine needle biopsy performed. Another two biopsies with the 22-gauge Acquire needle with fine needle aspiration biopsy done. Specimen sent for histology and also for the cytology. Fluid analysis still pending. The patient tolerated the procedure well and sent to the recovery room. Ascitic fluid analysis discussed with the pathologist. Ascitic fluid analysis . Both albumin and also chemistry and cytology all pending. We will slowly advance the diet in a.m. Thank you very much for allowing us to participate in the care of this patient. Korosario Leal MD [facility] # [id number]
[2017-04-11] MEDS: metroNIDAZOLE IV 500 mg/100 ml 500 MG/100 ML BAG IVPB SCH (05:07)
[2017-04-11] MEDS: Pantoprazole 40 mg EC Tab PO SCH (05:07)
[2017-04-11 07:59] VITALS: BP 154/78; PULSE 63; TEMP 98.4; O2SAT 95
[2017-04-11 08:55] LABS: BASO # 0.01 K/mm3 (0.0-2.0); BASO % 0.1 % (0.0-3.0); EOS % 0.3 % (1.5-5.0); GRAN # 8.86 (1.4-6.5); GRAN % 84.3 % (50.0-68.0); HEMOGLOBIN 12.2 g/dL (12.0-16.0); LYMPH # 1.1 (1.2-3.4); LYMPH % 10.3 % (22.0-35.0); MEAN CELL VOLUME 88.9 fl (80.0-105.0); MEAN CORPUSCULAR HEMOGLOBIN 28.8 pg (25.0-35.0); MEAN CORPUSCULAR HGB CONC 32.4 g/dl (31.0-37.0); MEAN PLATELET VOLUME 9.8 fl (7.0-11.0); MONO # 0.5 (0.1-0.6); RBC 4.24 10^6/uL (3.5-6.1); RED CELL DISTRIBUTION WIDTH 12.9 % (11.5-14.5); WHITE BLOOD COUNT 10.5 10^3/ul (4.5-11.0)
[2017-04-11 09:14] LABS: ALB/GLOB RATIO 1.2 (1.1-1.8); ALBUMIN 3.4 g/dL (3.0-4.8); ALT/SGPT 39 U/L (7-56); AST/SGOT 48 U/L (14-36); BILIRUBIN,DIRECT 0.5 mg/dL (0.0-0.4); BLOOD UREA NITROGEN 8 mg/dL (7-21); CALCIUM 8.9 mg/dL (8.4-10.5); GFR AFRICAN-AMERICAN > 60; GFR NON-AFRICAN AMERICAN > 60; MAGNESIUM 1.8 mg/dL (1.7-2.2)
--- NOTE | 2017-04-11 09:15 | CP.PCM.PN ---
Subjective - Date & Time of Evaluation Date of Evaluation: 04/11/17 Time of Evaluation: 07:30 - Subjective Subjective: Surgery Progress note. Dr. Hernandez Pt seen and examined at bedside. No acute events overnight. Does report flatus. No stool. Denies any F/C. No N/V. No new complaints. No CP/SOB. Objective - Vital Signs/Intake and Output Vital Signs (last 24 hours): Temp Pulse Resp BP Pulse Ox 98.4 F 63 18 154/78 H 95 04/11/17 07:59 04/11/17 08:07 04/11/17 07:59 04/11/17 08:07 04/11/17 07:59 Intake and Output: 04/11/17 04/11/17 06:59 18:59 Intake Total 2260 Balance 2260 - Medications Medications: Current Medications Acetaminophen (Tylenol 325mg Tab) 650 mg PO Q6H PRN PRN Reason: TEMP>=99.5F Last Admin: 04/10/17 20:36 Dose: 650 mg Acetaminophen (Tylenol 650 Mg Supp) 650 mg RC Q6H PRN PRN Reason: TEMP>=99.5F Docusate Sodium (Colace) 100 mg PO TID [facility] Last Admin: 04/10/17 18:12 Dose: Not Given Heparin Sodium (Porcine) (Heparin) 5,000 units SC Q8 [facility] PRN Reason: Protocol Last Admin: 04/11/17 05:16 Dose: Not Given Hydralazine HCl (Apresoline) 10 mg IVP Q6 PRN PRN Reason: SBP >160 Last Admin: 04/06/17 09:15 Dose: 10 mg Metronidazole (Flagyl) 500 mg in 100 mls @ 100 mls/hr IVPB Q8 [facility] PRN Reason: Protocol Last Admin: 04/11/17 05:07 Dose: 100 mls/hr Cefepime HCl (Maxipime 1gm) 1 gm in 100 mls @ 100 mls/hr IVPB Q12 [facility] PRN Reason: Protocol Last Admin: 04/10/17 22:51 Dose: 100 mls/hr Sodium Chloride (Sodium Chloride 0.9%) 1,000 mls @ 100 mls/hr IV .Q10H [facility] Last Admin: 04/11/17 03:14 Dose: Not Given Metoprolol Tartrate (Lopressor) 25 mg PO BRKDIN [facility] Last Admin: 04/11/17 08:07 Dose: 25 mg Morphine Sulfate (Morphine) 2 mg IVP Q4H PRN PRN Reason: Pain, moderate (4-7) Ondansetron HCl (Zofran Inj) 4 mg IVP Q4H PRN PRN Reason: Nausea/Vomiting Pantoprazole Sodium (Protonix Ec Tab) 40 mg PO 0600 [facility] Last Admin: 04/11/17 05:07 Dose: 40 mg Polyethylene Glycol (Miralax) 17 gm PO BID [facility] Last Admin: 04/10/17 18:12 Dose: Not Given Tramadol HCl (Ultram) 50 mg PO Q6 PRN PRN Reason: Pain, moderate (4-7) - Labs Labs: 04/11/17 08:49 04/10/17 05:30 PT 12.2 SECONDS (9.4-12.5) 04/08/17 05:40 INR 1.06 (0.93-1.08) 04/08/17 05:40 APTT 30.8 Seconds (25.1-36.5) 04/06/17 08:40 - Constitutional Appears: Well, Non-toxic, No Acute Distress - Head Exam Head Exam: ATRAUMATIC, NORMAL INSPECTION, NORMOCEPHALIC - Eye Exam Eye Exam: EOMI - ENT Exam ENT Exam: Mucous Membranes Moist - Respiratory Exam Respiratory Exam: NORMAL BREATHING PATTERN. absent: Accessory Muscle Use, Respiratory Distress - Cardiovascular Exam Cardiovascular Exam: absent: JVD - GI/Abdominal Exam GI & Abdominal Exam: Soft. absent: Distended, Firm, Guarding, Rigid, Tenderness , Rebound - Extremities Exam Extremities Exam: Normal Inspection. absent: Calf Tenderness - Neurological Exam Neurological Exam: Alert, Awake, Oriented x3 - Psychiatric Exam Psychiatric exam: Normal Affect, Normal Mood - Skin Skin Exam: Dry, Intact, Normal Color, Warm Assessment and Plan - Assessment and Plan (Free Text) Assessment: 71yo F with pancreatic mass, contracted gallbladder. S/p EUS with bx by GI on . - Low suspicion for acute GB disease Plan: - f/u Pancreatic mass bx results - Diet as per GI - No plans for any acute surgical intervention Further recs as per Dr. Mary Neal PGY1 surgery pager: [phone]
[2017-04-11] MEDS: Cefepime 1gm in NS 100ml 1 GM/100 ML BAG IVPB SCH (09:20)
[2017-04-11] MEDS: POLYETHYLENE GLYCOL 3350 17 GM/Dose PACKET PO SCH (09:56)
--- NOTE | 2017-04-12 05:00 | DS ---
FINAL PROGRESS NOTE AND DISCHARGE SUMMARY SUBJECTIVE: The patient is seen ambulating in the hallway. Patient states that she is feeling much better. Patient's overnight nurse's notes were reviewed. PHYSICAL EXAMINATION: VITAL SIGNS: T-max 98.4, pulse 63, blood pressure 154/78, 141/76, respirations 18, O2 saturation 95% to 99%. HEENT: Head examination normocephalic, atraumatic. HEENT examination shows pinkish pale conjunctivae. Anicteric sclerae. No oropharyngeal lesion. NECK: No neck rigidity. No carotid bruit. CHEST: Kyphosis. LUNGS: Shows no rales, crackles or wheezing. CARDIOVASCULAR: S1, S2, regular rhythm. [0211] ABDOMEN: Soft. No hepatosplenomegaly noted. No guarding, no rigidity, no rebound tenderness. Decreasing ascites noted. GENITALIA: Female. RECTAL: Deferred. EXTREMITIES: Shows no pitting edema, no calf tenderness, no Homans signs. NEUROLOGICAL: Patient is alert, awake, oriented x3. Cranial nerves II through XII intact. Gait examination is independent. DIAGNOSTIC DATA: On 04/11/2017, WBC 10.5, hemoglobin and hematocrit 12.2 and 37.7, platelets 259, granulocytes 84% segs. Sodium 138, potassium 3.9, chloride 102, CO2 of 26, anion gap 14, BUN 8, creatinine 0.7, GFR greater than 60, glucose 101, calcium 8.9, magnesium 1.8, AST 48. LFTs are normal. Pancreatic protocol CT was noted, which shows a hyperdense lesion in the pancreatic tail. Patient underwent yesterday the second EGD and EUS with fine needle aspiration. DIAGNOSES: 1. Massive ascites. 2. Abdominal pain, etiology undetermined. 3. Status post repeat esophagogastroduodenoscopy and endoscopic ultrasound with fine needle biopsy and aspiration of the 14 mm mass in the body of the pancreas closer to the tail. 4. Hiatal hernia. 5. Congestive gastropathy. 6. Duodenitis. 7. Ascites. 8. Possible and questionable malignant ascites. 9. Hypertension. 10. Status post ultrasound-guided paracentesis with removal of 2.8 liters of ascitic fluid. 11. Normocytic anemia with granulocytosis. 12. Hypokalemia. 13. Hyperglycemia with prediabetes. 14 Mild transaminitis. 15. Elevated CA19-9 and elevated CA-125. 16. Pancreatic tail hyperdense lesion with distally dilated pancreatic duct. 17. [id number] ascites. 18. Right hepatic lobe 10 mm hyperdense lesion, possible metastatic lesion. 19. History of abdominal pain and weight loss. DISCHARGE MEDICATIONS: 1. Colace 100 mg three times a day. 2. Lopressor 25 mg twice a day. 3. MiraLax 17 g twice a day. 4. Protonix 40 mg daily. 5. Ultram (tramadol) 50 mg three times a day p.r.n. PLAN: Patient is to be discharged today after cleared by Gastroenterology. Discharge followup with Dr. Cline, Dr. Leal and industrial maintenance repairer helper within a week. Patient is to be given all discharge medication script upon discharge. Time spent in the entire discharge process, more than 45 minutes. During this hospitalization, patient was extensively explained on a daily basis about the patient's diagnostics, test results, and recommendation by all the physician involved in the care of the patient. Dictated and electronically signed, not read. Sky Cline MD
[2017-04-12 05:22] LABS: AMYLASE PERITONEAL FLUID <10 U/L
--- NOTE | 2017-04-13 09:23 | PN ---
DATE: 04/10/2017 SUBJECTIVE: The patient today has been seen ambulating on the floor. Patient had ultrasound-guided paracentesis with removal of 3 liters. Patient's overnight nurse's notes were reviewed. PHYSICAL EXAMINATION: VITAL SIGNS: T-max 98.5, pulse 78, blood pressure 152/72, respirations 19, O2 sat 98%. HEENT: Head: Normocephalic, atraumatic. HEENT examination shows pinkish conjunctivae. Anicteric sclerae. No oropharyngeal lesion. NECK: No neck rigidity. CHEST: Kyphosis. LUNGS: Shows no rales, crackles or wheezing. CARDIOVASCULAR: S1, S2, regular rhythm. ABDOMEN: Soft. Positive bowel sounds, significantly decreasing ascites noted. No hepatosplenomegaly appreciated. No guarding. No rigidity. No rebound tenderness. GENITALIA: Female. RECTAL: Deferred. EXTREMITIES: Shows no pitting, no calf numbness, no Homans sign. NEUROLOGICAL: Patient is alert, awake, oriented x3. Cranial nerves II through XII intact. Gait examination is independent. Patient is observed ambulating in the room and the hallway without assistance. LABORATORY DATA AND IMAGING: From 04/10, WBC count 7.5, hemoglobin/hematocrit 10.4/32.6, platelet 250. Granulocytes 77. Sodium 137, potassium 3.7, chloride 104, CO2 24, anion gap 13, BUN 8, creatinine 0.6, GFR greater than 60, glucose 88, calcium 8.6, phosphorus 2.9, magnesium 1.8. LFTs are normal. Total protein 5.4, albumin 2.8. Hepatitis A, B, C serologies and HIV negative. Patient's pancreatic CT is pending. Patient's GI initial endoscopy EUS results official report pending. IMPRESSION AND PLAN: 1. Abdominal pain. 2. Massive ascites. 3. Status post ultrasound-guided paracentesis with removal of 2800 mL of ascites fluid. 4. Hypertension. 5. Normocytic anemia. 6. Granulocytosis. 7. Hypokalemia. 8. Prediabetes with elevated hemoglobin A1c of 6.1 and hyperglycemia. 9. Mild protein malnutrition and hypoalbuminemia. 10. Elevated CA 19-9 and elevated CA-125. 11. Questionable malignant ascites. 12. Status post esophagogastroduodenoscopy and endoscopic ultrasound, official report pending. 13. Status post esophagogastroduodenoscopy and endoscopic ultrasound with fine-needle aspiration. 14. Hiatal hernia. 15. Duodenitis. 16. Ascites. 17. Congested gastric mucosa. PLAN: At this time, we are awaiting for the results of the pancreatic CT. Patient possibly is scheduled for another GI procedure today. Exact details unknown. Because I am unable to find any notes from GI regarding the procedure. In addition, the patient's EGD and EUS from 04/08 report is also not available in the computer. CURRENT MEDICATIONS: 1. Hydralazine 10 mg IV q.6 hours p.r.n. 2. Colace 100 mg three times a day. 3. Flagyl 500 IV q.8 hours. 4. Heparin 5000 subcu q.8 hours. 5. Patient is given a dose of potassium 20 mEq as the patient's potassium is low normal. Patient is on Lopressor 25 twice a day, cefepime 1 g IV q.12, MiraLax 17 g twice a day, morphine 2 mg IV q.4 hours p.r.n., Protonix 40 mg daily. Patient is on Tylenol 650 q.6 p.r.n., Zofran 4 mg IV q.4 p.r.n. Patient is on liquid diet. Patient has been ordered out of bed, HAO stockings and SCDs. Patient is n.p.o. past midnight since last night except meds for EUS, 04/10/2017. Patient has been updated about most recent available diagnostic test results and recommendation by all physician involved in the care of the patient. All of the above was explained to the patient in layman's language. All questions and concerns answered. Again as mentioned, we are awaiting for the pancreatic protocol CT results and a repeat EGD and EUS today. Dictated and electronically signed, not read. Sky Cline MD
== END 2017-04-11 16:18 | disposition home or self-care (01) | DRG 392 ==
LOC: ED 20:49 → ERH 04-06 01:33 → 3RNO 04-06 03:49 → OBSVTOIN 04-07 16:43
PROVIDERS: ADMIT Internal Medicine; ATTEND Internal Medicine
PROC: 0DJ08ZZ Inspection of Upper Intestinal Tract, Via Natural or Artificial Opening Endoscopic (ICD-10-PCS; 2017-04-08)
PROC: 0FBG8ZX Excision of Pancreas, Via Natural or Artificial Opening Endoscopic, Diagnostic (ICD-10-PCS; 2017-04-08)
PROC: 0W9G3ZZ Drainage of Peritoneal Cavity, Percutaneous Approach (ICD-10-PCS; principal; 2017-04-09 16:00)
DX: R10.9 Unspecified abdominal pain (principal); R18.8 Other ascites; E44.1 Mild protein-calorie malnutrition; D50.9 Iron deficiency anemia, unspecified; I10 Essential (primary) hypertension; R73.03 Prediabetes; K31.89 Other diseases of stomach and duodenum; K29.80 Duodenitis without bleeding; K44.9 Diaphragmatic hernia without obstruction or gangrene; M19.012 Primary osteoarthritis, left shoulder; M47.816 Spondylosis without myelopathy or radiculopathy, lumbar region; Z96.643 Presence of artificial hip joint, bilateral; K59.00 Constipation, unspecified; K29.70 Gastritis, unspecified, without bleeding; R97.1 Elevated cancer antigen 125 [CA 125]; E87.6 Hypokalemia; N85.4 Malposition of uterus; K57.90 Diverticulosis of intestine, part unspecified, without perforation or abscess without bleeding; K86.89 Other specified diseases of pancreas